=== PATIENT | male | born 1945 | race Caucasian/White ===

== ENCOUNTER → 2017-12-24 07:17 | Outpatient (BNVA) | payer MEDICARE, OTHER, SELFPAY | PROVIDERS: PCP Family Medicine; Visit Provider Surgery | DX: Z12.11 Encounter for screening for malignant neoplasm of colon (principal); Z86.010 Personal history of colon polyps; I10 Essential (primary) hypertension ==

== ENCOUNTER 2018-01-10 06:53 | Day surgery (SDC) | payer MEDICARE, SELFPAY ==
--- NOTE | 2018-01-10 06:53 | W.COLOREPORT ---
Date of service: 01/10/18 Time of Service: 08:30 Colonoscopy Report Date of procedure: 01/10/18 Pre-op diagnosis general: Hx of polyps Post-op diagnosis procedure note: other (mild diverticulosis) Procedure: Colonoscopy Surgeon: Alma Carney Anesthesia proc note operative: MAC (Tay Jewell CRNA/ ASA 2) Estimated blood loss (mL): 0 Pathology: none sent Complications: None Disposition: same day Indications: Mr. Brown is a pleasant 72-year-old gentleman seen in the office for a colonoscopy. He was noted to have polyps at his last colonoscopy. Risks, benefits, complications were reviewed with him and he wished to proceed. No guarantees were given or implied. Prep: Miralax/Dulcolax Procedure Start Time: 08:19 Procedure End Time: 08:43 Retraction Time: 18 Findings: Mild diverticulosis. No polyps noted. Tattoo area noted, no regrowth Procedure Description: After informed consent was obtained the patient was taken to the procedure room and placed in a left decubitous position. Monitors were applied and a time out was done. The patients name, date of , procedure, allergies to medications and metal in their body was reviewed. The patient was then sedated. Once sedated and comfortable a rectal exam was done. External exam was normal. Internal exam revealed a normal sphincter tone and no palpable masses. The prostate was smooth. The scope was then introduced and retroflexed. No internal hemorrhoids were identified. The scope was then advanced to the cecum without difficulty. The TI and appendiceal orifice were identified. The prep was adequate. The scope was then slowly retracted over 18 minutes back into the rectum. There was mild diverticulosis of the sigmoid colon. The tattooed area in the ascending colon was noted. No re-growth of polyp was identified. The scope was removed and the patient was woken up and taken back to Same day surgery in stable condition. The patient tolerated the procedure well and there were no immediate complications. Follow up: The patient should follow up as needed unless they develop changes in bowel habits or other new gastrointestinal complaints.
--- NOTE | 2018-01-10 06:55 | W.PM.DSUDISC ---
Discharge Plan Disposition Patient Disposition: HOME Condition: Good Discharge Details Reason For Visit: HX OF POLYPS Attending Provider: Alma Carney Primary Care Provider: Gaston Jimenez Home Meds and New Rx's Prescriptions: Continue varicella-zoster [id number] (PF) [Shingrix (PF)] 50 mcg/0.5 mL suspension for reconstitution 0.5 ml IM ONCE Qty: 1 RF: 0 garlic 1 EACH capsule 1 ea PO HS RF: 0 omega-3 fatty acids-fish oil 1 EACH capsule 1 ea PO DAILY RF: 0 triamcinolone acetonide 15 GM cream Topical DAILY PRNQty: 15 RF: 2 losartan 25 MG tablet 25 mg PO DAILY Qty: 90 RF: 4 fluorouracil [Efudex] 40 GM cream Topical DAILY Qty: 40 RF: 0 simvastatin [Zocor] 20 MG tablet 20 mg PO HS Qty: 90 RF: 4 hydrochlorothiazide 25 MG tablet 25 mg PO DAILY Qty: 90 RF: 4 aspirin [Aspirin Low-Strength] 81 MG tablet,chewable 81 mg PO HS RF: 0 vitamin B complex 1 EACH capsule 1 ea PO DAILY RF: 0 [id number]-vnaa-gqp0-C-leandro-bosw [Osteo Bi-Flex Triple Strength] 1 EACH tablet 1 ea PO DAILY RF: 0 mometasone [Nasonex] 50 mcg/actuation [place],Non-Aerosol 2 spray INTRANASAL DAILY PRNRF: 0 guaifenesin [Mucinex] 600 mg Tablet Extended Release 12hr 600 mg PO Q12H PRNRF: 0 Discontinued polyethylene glycol 3350 17 gram powder in packet 255 g PO DAILY Qty: 15 RF: 0 bisacodyl [Dulcolax (bisacodyl)] 5 mg tablet,delayed release (DR/EC) 5 mg PO ONCE Qty: 4 RF: 0 Discharge Instructions Instructions: Colonoscopy (DC), Diverticulosis (DC) Additional Instructions: Findings: mild diverticulosis Follow up: as needed New Medications: none Please call if you develop: fevers >101.5 Nausea or Vomiting Abdominal pain that is not transient 1. Because there will be medication in your system for the next 24 hours, you may feel a little sleepy. Your coordination will be affected. Therefore: a. Do not drive or operate dangerous equipment for 24 hours. b. Do not drink alcohol beverages for 24 hours (not even beer). c. Plan to go home and rest for the day. 2. Generally there are no restrictions on your activity after a day or so has gone by, but you may feel a bit fatigued for a few days. 3 After you arrive home you may have a light meal and return to a normal diet as you can tolerate it without feeling sick to your stomach. 4. After surgery, you may feel pain or discomfort. This should be only transient, but if it persists please contact your doctor. 5. If there are any questions regarding the findings of your procedure, please feel free to contact your doctor. 6. If you are unable to contact your doctor with a problem, contact the hospital at [phone]. 7. Continue all your regular medications unless directed otherwise. I understand the above instructions and have no questions. Signature of Patient or Responsible Adult Escort Date/Time Name of Responsible Adult Escort Signature of Nurse Date/Time Activity:: Activity as Tolerated Diet:: As Tolerated Discharge Orders Discharge Orders: Discharge Order (Routine); Ordered 01/10/18 Ordered By: Alma Carney DS: Diagnosis Discharge Diagnosis (1) History of adenomatous polyp of colon: Status: Acute (2) S/P colonoscopy: Status: Acute (3) Diverticulosis: Status: Acute
[2018-01-10 07:17] VITALS: BP 123/76; PULSE 75; RESP 16; TEMP 36.4; O2SAT 99
[2018-01-10] MEDS: Lactated Ringers 1,000 ML 80 ML IV (07:30)
[2018-01-10 09:10] VITALS: BP 119/77; PULSE 66; RESP 16; TEMP 36.3; O2SAT 98
== END 2018-01-10 09:45 | disposition home or self-care (01) ==
PROVIDERS: PCP Family Medicine; Visit Provider Surgery
PROC: 0DJD8ZZ Inspection of Lower Intestinal Tract, Via Natural or Artificial Opening Endoscopic (ICD-10-PCS; CPT 45378; principal; 2018-01-10 08:15)
DX: Z12.11 Encounter for screening for malignant neoplasm of colon (principal); Z86.010 Personal history of colon polyps; K57.30 Diverticulosis of large intestine without perforation or abscess without bleeding; I10 Essential (primary) hypertension; K21.9 Gastro-esophageal reflux disease without esophagitis
CPT/HCPCS: G0105

== ENCOUNTER 2018-10-01 09:02 | Outpatient (CLI) | payer MEDICARE, SELFPAY ==
[2018-10-01 10:28] LABS: Anion Gap 4.4 mmol/L (3-11); BUN 23 mg/dL (7-18); CO2 30.6 mmol/L (21.0-32.0); CREATININE 0.96 mg/dL (0.70-1.30); Calcium 8.5 mg/dL (8.5-10.1); Chloride 105 mmol/L (98-107); Glucose 95 mg/dL (70-100); Potassium 4.4 mmol/L (3.5-5.1); Sodium 140 mmol/L (136-145)
== END 2018-10-01 09:22 ==
PROVIDERS: PCP Family Medicine; Visit Provider Family Medicine
DX: I10 Essential (primary) hypertension (principal)
CPT/HCPCS: 36415; 80048

== ENCOUNTER 2019-02-15 07:38 | Outpatient (CLI) | payer MEDICARE, SELFPAY ==
--- NOTE | 2019-02-15 10:00 | DI.RAD_ITS ---
EXAM: XR CERVICAL SPINE COMP 4-5V INDICATION: neck swelling and pain, neck pain rt side, cervicalgia, M54.2. COMPARISON: LUMBAR SPINE COMPLETE from 04/12/2011 TECHNIQUE: 2D digital imaging was performed. FINDINGS: There is straightening of the normal cervical lordosis. There is narrowing of the C3-4 through C6-7 discs. There appears to be partial fusion between the disc between C 4-5 and C5-6. Facet degenerat crys changes are seen throughout. There is neural foraminal narrowing on the left at C2-3 and C3-4 ma inly secondary to facet encroachment. There is no significant right neural foraminal narrowing. IMPRESSION: Advanced degenerative disc changes and facet degenerative changes cause left neural foraminal narrowi ng in the upper cervical region.
[2019-02-15 10:38] LABS: Abs Immature Grans 0.02 k/cumm (0.0-0.09); Absolute Basophil Count 0.01 k/cumm (0.0-0.2); Absolute Eosinophil Count 0.02 k/cumm (0.0-0.7); Absolute Lymphocyte Count 2.11 k/cumm (1.2-3.4); Absolute Monocyte Count 1.37 k/cumm (0.11-0.7); Absolute Neutrophil Count 7.27 k/cumm (1.2-6.7); Basophils % 0.1; Eosinophils % 0.2; HCT 42.4 % (40.0-50.0); HGB 14.3 g/dL (13.5-17.5); Immature Grans % 0.2; Lymphocytes % 19.5; Mean Corp. HGB Concentration 33.7 g/dL (32.0-36.0); Mean Corpuscular Hemoglobin 31.2 pg (27.0-33.0); Mean Corpuscular Volume 92.6 fL (80-95); Mean Platelet Volume 9.6 fL (8.0-11.0); Monocytes % 12.7; Neutrophils % 67.3; Platelet Count 345 x1000/uL (130-400); RBC 4.58 m/cumm (4.50-6.00); RBC Distribution Width 12.8 % (11.8-14.1)
[2019-02-15 11:22] LABS: ESR 8 mm/hr (1-20)
[2019-02-15 11:35] LABS: C-Reactive Protein < 0.05 mg/dL (0.0-0.3)
== END 2019-02-15 07:58 ==
PROVIDERS: PCP Family Medicine; Visit Provider Family Medicine
DX: M54.2 Cervicalgia (principal); M50.31 Other cervical disc degeneration, high cervical region; M50.322 Other cervical disc degeneration at C5-C6 level; M50.323 Other cervical disc degeneration at C6-C7 level; M47.812 Spondylosis without myelopathy or radiculopathy, cervical region
CPT/HCPCS: 85652; 72050; 85025; 86140

== ENCOUNTER 2019-09-29 10:06 | Outpatient (CLI) | payer MEDICARE, SELFPAY ==
[2019-09-29 13:09] LABS: Anion Gap 9.4 mmol/L (3-11); BUN 21 mg/dL (7-18); CO2 27.6 mmol/L (21.0-32.0); CREATININE 1.01 mg/dL (0.70-1.30); Calcium 8.5 mg/dL (8.5-10.1); Chloride 104 mmol/L (98-107); Glucose 136 mg/dL (74-106); Potassium 3.6 mmol/L (3.5-5.1); Sodium 141 mmol/L (136-145)
== END 2019-09-29 10:26 ==
PROVIDERS: PCP Nurse Practitioner Family; Visit Provider Family Medicine
DX: I10 Essential (primary) hypertension (principal)
CPT/HCPCS: 36415; 80048

== ENCOUNTER 2020-10-03 21:20 | Outpatient (REF) | payer MEDICARE, SELFPAY ==
[2020-10-03 21:45] LABS: Anion Gap 9.2 mmol/L (3-11); BUN 21 mg/dL (7-18); CO2 27.8 mmol/L (21.0-32.0); Calcium 8.8 mg/dL (8.5-10.1); Calculated LDL 99 mg/dL (<100); Chloride 103 mmol/L (98-107); Cholesterol 185 mg/dL (<200); Glucose 106 mg/dL (74-106); HDL Cholesterol 59 mg/dL (40-60); Potassium 3.9 mmol/L (3.5-5.1); Sodium 140 mmol/L (136-145); Triglyceride 135 mg/dL (<150)
== END 2020-10-03 21:21 | disposition home or self-care (01) ==
LOC: LBN 21:20
PROVIDERS: PCP Nurse Practitioner Family; Visit Provider Nurse Practitioner Family
DX: I10 Essential (primary) hypertension (principal); E78.5 Hyperlipidemia, unspecified
CPT/HCPCS: 80048; 80061

== ENCOUNTER 2021-05-27 02:58 | Outpatient (CLI) | payer MEDICARE, SELFPAY ==
[2021-05-27 10:10] LABS: Hemoglobin A1C 6.1 % (<5.7)
== END 2021-05-27 02:59 | disposition home or self-care (01) ==
LOC: LBO 02:58
PROVIDERS: PCP Nurse Practitioner Family; Visit Provider Nurse Practitioner Family
DX: R73.01 Impaired fasting glucose (principal)
CPT/HCPCS: 36415; 83036

== ENCOUNTER 2021-07-14 18:22 | Outpatient (REF) | payer MEDICARE, SELFPAY ==
[2021-07-15 16:06] LABS: COVID-19 RT-PCR UVMMC Result Positive (Negative)
== END 2021-07-14 18:23 | disposition home or self-care (01) ==
LOC: LBN 18:22
PROVIDERS: PCP Nurse Practitioner Family; Visit Provider Nurse Practitioner Family
DX: Z20.822 Contact with and (suspected) exposure to COVID-19 (principal); Z01.818 Encounter for other preprocedural examination
CPT/HCPCS: U0003; U0005

== ENCOUNTER → 2021-10-03 09:08 | Outpatient (BNVA) | payer MEDICARE, SELFPAY | PROVIDERS: PCP Nurse Practitioner Family; Referring Provider Nurse Practitioner Family; Visit Provider Student in an Organized Health Care Education/Training Program | DX: G56.01 Carpal tunnel syndrome, right upper limb (principal) | CPT/HCPCS: 99203 ==

== ENCOUNTER 2021-10-28 10:16 | Day surgery (SDC) | payer MEDICARE, SELFPAY ==
--- NOTE | 2021-10-28 09:09 | W.PM.DSUDISC ---
Discharge Plan Disposition Patient Disposition: HOME Condition: Good Discharge Details Reason For Visit: Right carpal tunnel syndrome Attending Provider: Franklyn Richardson Primary Care Provider: Mayi Gonzalez Home Meds and New Rx's Prescriptions: Continued losartan 25 mg tablet 25 mg PO DAILY Qty: 90 4RF hydrochlorothiazide 25 mg tablet 25 mg PO DAILY Qty: 90 4RF simvastatin [Zocor] 20 mg tablet 20 mg PO HS Qty: 90 4RF fluticasone propionate [Flonase Allergy Relief] 50 mcg/actuation spray,suspension 2 spray intranasal DAILY PRN Rx Instructions: administer into each nostril garlic 1 EACH capsule 1 ea PO HS omega-3 fatty acids-fish oil 1 EACH capsule 1 ea PO DAILY aspirin [Aspirin Low-Strength] 81 MG tablet,chewable 81 mg PO HS vitamin B complex 1 EACH capsule 1 ea PO DAILY Osteo Bi-Flex Triple Strength 1 EACH tablet 1 ea PO DAILY Discharge Instructions Stand Alone Forms: Dylan Vale Tunnel Release Referrals: Franklyn Richardson MD [ [facility]FF [facility]YSICIAN] - Activity:: Elevate Remove Dressings/Wound Care:: 72 hours Shower/Bathe:: 72 hours Diet:: As Tolerated Discharge Orders Discharge Orders: Discharge Order (Routine); Ordered 10/28/21 Ordered By: Kathy Richard
[2021-10-28 10:43] VITALS: BP 113/69; PULSE 77; RESP 16; TEMP 36.6; O2SAT 97
[2021-10-28] MEDS: Lactated Ringers 1,000 ML 80 ML IV (11:25)
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
[2021-10-28 11:46] VITALS: BMI 31.0
[2021-10-28] MEDS: ceFAZolin 2 GM/50 ML BAG IVPB (12:20)
[2021-10-28] MEDS: Lidocaine 1.5 % Pres-Free W/EPI 1/200,000 30 ML VIAL (12:33)
[2021-10-28 12:48] VITALS: BP 111/63; PULSE 76; RESP 14; TEMP 36.3; O2SAT 95
--- NOTE | 2021-10-28 12:51 | W.ANESPOSTOP ---
Postoperative Evaluation Date, Time and Location Date Performed: 10/28/21 Time Performed: 12:52 Patient Location: Day Surgery Unit Vital Signs Most Recent Imported Vital Signs: Most Recent Vital Signs Temp Pulse Resp BP Pulse Ox 36.6 C 77 16 113/69 97 10/28/21 10:43 10/28/21 10:43 10/28/21 10:43 10/28/21 10:43 10/28/21 10:43 Most Recent Manually Entered Vital Signs: Adult Blood Pressure: 111/63 Heart Rate: 74 Respirations: 12 Oxygen Saturation (%): 95 Temperature (C): 36.3 C Pain Score (0-10 Scale): 0 Pain Score Most Recent Pain Score: Most Recent Pain Score Pain Level 0 10/28/21 10:43 Assessment Mental Status: Awake (Alert & Oriented to Patient Baseline) Airway and Respiratory Function: Patent airway with normal (patient baseline) respiratory exam Cardiovascular Function: Hemodynamically Stable Hydration Status: Adequately Hydrated Nausea & Vomiting: No Nausea or Vomiting Pain: Pt. Denies Any Pain Peripheral Nerve Block: Patient did not receive a nerve block
[2021-10-28 12:53] VITALS: BP 111/63; PULSE 74; RESP 12; TEMPC 36.3; O2SAT 95
[2021-10-28 13:19] VITALS: BP 121/66; PULSE 69; RESP 16; TEMP 36.4; O2SAT 97
--- NOTE | 2021-10-28 22:08 | W.PM.OP ---
Date of service: 10/28/21 Time of Service: 13:00 Operative Note Operative Note DATE OF PROCEDURE: 10/28/21 PRE-OP DIAGNOSIS: Right Carpal Tunnel Syndrome POST-OP DIAGNOSIS: same PROCEDURE: Right Endoscopic Carpal Tunnel Release SURGEON: Franklyn Richardson ANESTHESIA TYPE: General:No Airway Refer to Anesthesia Record ESTIMATED BLOOD LOSS: 0 PATHOLOGY: none sent TOURNIQUET TIME: 3 COMPLICATIONS: None Patient was transported to: same day Patient's condition: stable Indications: I have seen Chapincito in clinic for symptoms of carpal tunnel syndrome. The numbness, tingling, and pain limited function. Clinical exam findings with nerve conduction tests confirmed the diagnosis of carpal tunnel syndrome. Nonoperative measures such as bracing, time, activity modifications had been tried but disability and pain persisted. I discussed carpal tunnel release with the patient. I reviewed the risks of the procedure to include, but not limited to, bleeding, infection, pain, stiffness, incomplete release, damage to nerves or vessels, persistent numbness, recurrence. Despite these risks, the patient elected to proceed. Findings: There was tightened carpal tunnel. This was dilated and released successfully with the endoscopic with increased space within the tunnel. The antebrachial fascia was released proximally freeing the median nerve at the wrist. Procedure Description: Chapincito was greeted in the preoperative holding area where the correct side was identified and marked. The consent was reviewed with the patient and signed. The history and physical was updated. All questions were answered. He was taken back to the operating room. The patient was placed into the supine position on the operating room table with the right arm on an arm board. A nonsterile tourniquet was placed high onto the arm. All bony prominences were well padded. Prophylactic antibiotics in the form of Cefazolin were administered. The right arm was then prepped with Chloraprep and draped in a standard fashion with stockinette and extremity drape. A timeout to confirm correct identity, side and site, procedure, allergies, anesthesia, and medical concerns was performed. The surgical site was marked in the volar wrist creases in line with the radial border of the fourth ray. This area was anesthetized with approximately 6cc of 1% Lidocaine. The limb was then exsanguinated with an Esmarch. The skin was incised with a 15 blade, approximately 1cm. The skin only was cut and the deeper tissue was dissected bluntly with a tenotomy scissor, avoiding passing nerve and venous structures. The fascia was penetrated and opened bluntly. A two-prong skin hook was placed under this proximal fascial edge. A series of hamate finders were used to identify and dilate the carpal tunnel. Synovial elevator was used to free synovial attachments to the underside of the transverse carpal ligament. My thumb was kept in the palm to lakshmi the distal extent of the carpal tunnel and correctly position the hand. The Microaire endoscope was inserted without difficulty and without resistance. Excellent visualization showed horizontally running fibers of the transverse carpal ligament (TCL). The distal extent of the TCL was visualized and the end of the scope palpated with the thumb. The blade was elevated and withdrawn from distal to proximal. The TCL was split into two flaps. The endoscope was reinserted to confirm complete release and any remnant ligament was incised. The scope was withdrawn and the proximal aspect of the carpal tunnel was grossly inspected and appeared release with the median nerve visible. The antebrachial fascia at the level of the wrist was then freed from the overlying skin and then the underlying median nerve with blunt dissection. This was transected longitudinally for about 3cm proximal to the wrist incision. The wound was then irrigated with easy flow of irrigant distally and proximally. The incision was closed with a single 4-0 Nylon suture. The wound was dressed with Xeroform, Gauze, Kerlix and Jacob. The tourniquet was deflated with the initial dressing and held with some pressure. Blood flow returned easily to all digits with capillary refill less than 2 seconds. The patient tolerated the procedure well and was returned to the Same Day Surgery area in a stable condition suffering no known complication.
== END 2021-10-28 13:48 | disposition home or self-care (01) ==
PROVIDERS: PCP Nurse Practitioner Family; Visit Provider Student in an Organized Health Care Education/Training Program
PROC: 01N54ZZ Release Median Nerve, Percutaneous Endoscopic Approach (ICD-10-PCS; CPT 29848; principal; 2021-10-28 14:45)
DX: G56.01 Carpal tunnel syndrome, right upper limb (principal); I10 Essential (primary) hypertension; E78.5 Hyperlipidemia, unspecified
CPT/HCPCS: 29848; J0690; J2250

== ENCOUNTER → 2021-11-06 11:13 | Outpatient (BNVA) | payer MEDICARE, SELFPAY | PROVIDERS: PCP Nurse Practitioner Family; Referring Provider Nurse Practitioner Family; Visit Provider Physician Assistant | DX: Z47.89 Encounter for other orthopedic aftercare (principal); G56.01 Carpal tunnel syndrome, right upper limb ==

== ENCOUNTER 2021-11-11 03:58 | Outpatient (CLI) | payer MEDICARE, SELFPAY ==
[2021-11-11 12:49] LABS: Anion Gap 7.3 mmol/L (3-11); BUN 16 mg/dL (7-18); CO2 28.7 mmol/L (21.0-32.0); CREATININE 1.1 mg/dL (0.70-1.30); Calcium 8.6 mg/dL (8.5-10.1); Chloride 101 mmol/L (98-107); Estimated GFR 68.71 (mL/min/1.73m2); Glucose 105 mg/dL (74-106); Potassium 3.7 mmol/L (3.5-5.1); Sodium 137 mmol/L (136-145)
[2021-11-12 09:59] LABS: PSA, Screening 0.6 ng/mL (<=6.5)
== END 2021-11-11 03:59 | disposition home or self-care (01) ==
LOC: LBO 03:59
PROVIDERS: PCP Nurse Practitioner Family; Visit Provider Nurse Practitioner Family
DX: I10 Essential (primary) hypertension (principal); Z85.46 Personal history of malignant neoplasm of prostate; Z12.5 Encounter for screening for malignant neoplasm of prostate
CPT/HCPCS: 36415; 80048; 84153

== ENCOUNTER 2022-11-06 02:13 | Outpatient (CLI) | payer MEDICARE, SELFPAY ==
[2022-11-06 15:14] LABS: Hemoglobin A1C 6.1 % (<5.7)
[2022-11-06 16:51] LABS: ALT 26 U/L (16-63); AST 17 U/L (15-37); Albumin 3.5 g/dL (3.4-5.0); Alkaline Phosphatase 75 U/L (46-116); Anion Gap 5.7 mmol/L (3-11); BUN 23 mg/dL (7-18); Bilirubin, Total 0.5 mg/dL (0.2-1.0); CO2 30.3 mmol/L (21.0-32.0); CREATININE 1.1 mg/dL (0.70-1.30); Calcium 8.4 mg/dL (8.5-10.1); Calculated LDL 66 mg/dL (<100); Chloride 101 mmol/L (98-107); Cholesterol 167 mg/dL (<200); Estimated GFR 68.29 (mL/min/1.73m2); Glucose 107 mg/dL (74-106); HDL Cholesterol 68 mg/dL (40-60); Potassium 3.6 mmol/L (3.5-5.1); Sodium 137 mmol/L (136-145); TSH (W/Ref FT4) 2.58 uIU/mL (0.36-3.74); Total Protein 6.9 g/dL (6.4-8.2); Triglyceride 167 mg/dL (<150)
[2022-11-09 10:42] LABS: Hepatitis C Ab w Rflx HCV PCR Negative (Negative)
== END 2022-11-06 02:14 | disposition home or self-care (01) ==
LOC: LBO 02:13
PROVIDERS: PCP Nurse Practitioner Family; Visit Provider Nurse Practitioner Family
DX: I10 Essential (primary) hypertension (principal); Z00.00 Encounter for general adult medical examination without abnormal findings; R73.03 Prediabetes
CPT/HCPCS: 36415; 80053; 80061; 86803; 83036; 84443

== ENCOUNTER → 2023-04-05 12:10 | Outpatient (CLI) | payer MEDICARE, SELFPAY ==
--- NOTE | 2023-04-05 10:45 | DI.RAD_ITS ---
Exam(s) XR FOOT LT COMPLETE XR HEEL LT OS CALCIS EXAM: XR FOOT LT COMPLETE CLINICAL HISTORY: evaluate pathology G89.29 PAIN M79.672 PAIN LT FOOT. TECHNIQUE: 2D digital imaging was performed. Three views. COMPARISON: CR XR HEEL LT OS CALCIS from 04/05/2023 FINDINGS: BONES: No acute fracture is present. Mild deformity of the proximal phalanx of the 5th toe may be re lated to an old fracture. No bony destructive lesion is seen. The bones appear osteopenic. JOINTS: No dislocation present. Are severe degenerative changes at the talonavicular joint with pro minent dorsal spurring. Degenerative changes also noted at tarsal metatarsal joints crit, greater at the 4th and 5th TMT joints. Degenerative changes also noted at the 5th MTP joint. SOFT TISSUE: Normal. IMPRESSION: Degenerative changes, greatest at the talonavicular joint. DATA REPOSITORY: RADIATION DOSE DELIVERED:
== END ==
PROVIDERS: PCP Nurse Practitioner Family; Visit Provider Nurse Practitioner Family
DX: M19.072 Primary osteoarthritis, left ankle and foot (principal)
CPT/HCPCS: 73630; 73650

== ENCOUNTER → 2023-04-26 11:11 | Outpatient (BNVA) | payer MEDICARE, SELFPAY | PROVIDERS: PCP Nurse Practitioner Family; Referring Provider Nurse Practitioner Family; Visit Provider Podiatrist | DX: L84 Corns and callosities; M67.02 Short Achilles tendon (acquired), left ankle; M79.672 Pain in left foot; M85.662 Other cyst of bone, left lower leg | CPT/HCPCS: 99214 ==

== ENCOUNTER → 2023-05-06 02:09 | Outpatient (CLI) | payer MEDICARE, SELFPAY ==
--- NOTE | 2023-05-06 07:30 | DI.MRI_ITS ---
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 Multiplanar multisequence MRI of the knee was performed on 1.5 christopher unit with both pre and post cont rast infused sequences. Contrast injected was 20 mL Dotarem. COMPARISON: CR XR HEEL LT OS CALCIS from 04/05/2023 CR XR FOOT LT COMPLETE from 04/05/2023 FINDINGS: SKIN: Posterior to the calcaneus is subcutaneous low signal which is probably callus. The skin over t his area appears intact and there does not appear to be an obvious skin ulcer and no fluid-filled tra ct. However, in the deep aspect of this subcutaneous region there is a focus of signal dropout measur ing 5 by 4 mm. Possibly representing chronic foreign body. There is no abnormal intraosseous signal n or intraosseous enhancement in the calcaneus to suggest osteomyelitis. BONES/JOINTS: No evidence of fracture nor bone contusion. There are no significant osseous lesions wi thin the calcaneus and other bones of the mid-hindfoot. No prominent joint effusion is present. The t alar dome appears unremarkable. The ankle mortise is maintained. There are advanced osteoarthritic degenerative changes at the talonavicular joint with degenerative subarticular cysts predominantly on the talus side and subarticular edema on both sides the joint and opposing dorsal osteophytes at thi s level. Only mild degenerative changes in the tibiotalar and subtalar joints. Mild degenerative castro ges at the calcaneocuboid articulation noted. Some degenerative change noted at the calcaneocuboid. A lso at the articulation between the navicular and medial cuneiform. There is significant degenerative change at the 4th tarsometatarsal joint with joint space narrowing, degenerative subarticular cysts on both sides of this joint and mild bone edema. A lesser amount of degenerative changes noted at the 5th tarsometatarsal joint. There is no evidence of para-articular ganglion cysts LIGAMENTS: The anterior and posterior tibiofibular and calcaneofibular ligaments are intact. The ante rior and posterior talofibular ligaments are intact. The deltoid ligament is intact. Main Lisfranc ligament appears intact SINUS TARSI: There is no loss of the normal fat signal in this space. Interosseous ligament appears somewhat attenuated but otherwise intact.. There is no evidence of sinus tarsi ganglion cyst. MUSCULOTENDINOUS STRUCTURES: Achilles tendon: Unremarkable. No evidence of tear nor tendinitis/tendinosis. Plantar fascia: Unremarkable. No evidence of tear, abnormal thickening, nor abnormal nodularity. Ther e is no prominent inferior calcaneal spur on the undersurface of the calcaneus. Anterior Extensor tendons: The tibialis anterior appears unremarkable. Extensor tendons are somewhat thin the over the region of the dorsal osteophytes at the talonavicular joint. Medial Tendons: Posterior Tibialis: Unremarkable. No tear or tenosynovitis evident. Flexor Digitorum longus: Unremarkable. No tear or tenosynovitis evident. Flexor Hallicus longus: Unremarkable. No tear or tenosynovitis evident. Lateral Tendons: Peroneus longus: Unremarkable. No tear nor tenosynovitis evident. Peroneus brevis:Unremarkable. No tear nor tenosynovitis evident. OTHER FINDINGS: None. IMPRESSION: 1. 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 Most prominent degenerative findings are at the talonavicular joint where there is signi ficant joint space narrowing. Degenerative subarticular cysts and opposing dorsal osteophytes over wh ich extensor or tendons are splayed. 2. Other significant degenerative changes or at the articulation between the distal cuboid and bases of the 4th and 5th metatarsals, most prominent at the 4th tarsometatarsal joint. There are no obvious degenerative changes at the 1st, 2nd, and 3rd tarsometatarsal joints although there is some degenera tive change at the articulation between the distal navicular and medial cuneiform. 3. On the posterior aspect of the foot there is a skin marker in place. The skin over this area appea rs intact but there is hypointensity on all sequences in the subcutaneous fat between the skin and th e posterior cortex of the calcaneus. This does not have the appearance of an active ulcer but may be tract from remote foreign body. There is no susceptibility artifact at this level. If clinically feli cated CT scan through this region can not determine if there is a very subtle radiopaque density cate esponding to this hypointense signal. Most importantly, there is no evidence to suggest osteomyelitis . The Achilles tendon and plantar fascia appear unremarkable. DATA REPOSITORY:
[2023-05-06 10:22] LABS: Estimated GFR 76.56 (mL/min/1.73m2)
[2023-05-06] MEDS: Gadoterate meglumine 20 ML SYRINGE IVP (10:40)
[2023-05-06] MEDS: Normal Saline Flush 10 ML SYR IVP (10:42)
== END ==
PROVIDERS: PCP Nurse Practitioner Family; Visit Provider Podiatrist
DX: M85.672 Other cyst of bone, left ankle and foot (principal); M79.672 Pain in left foot
CPT/HCPCS: 73723; 82565

== ENCOUNTER → 2023-05-12 08:04 | Outpatient (BNVA) | payer MEDICARE, SELFPAY | PROVIDERS: PCP Nurse Practitioner Family; Referring Provider Nurse Practitioner Family; Visit Provider Podiatrist | DX: L84 Corns and callosities; M67.02 Short Achilles tendon (acquired), left ankle; M79.672 Pain in left foot; M85.672 Other cyst of bone, left ankle and foot | CPT/HCPCS: 99213 ==

== ENCOUNTER → 2023-06-07 11:26 | Outpatient (BNVA) | payer MEDICARE, SELFPAY | PROVIDERS: PCP Nurse Practitioner Family; Referring Provider Nurse Practitioner Family; Visit Provider Podiatrist | DX: M85.672 Other cyst of bone, left ankle and foot; L84 Corns and callosities; M67.02 Short Achilles tendon (acquired), left ankle; M79.672 Pain in left foot | CPT/HCPCS: 99214 ==

== ENCOUNTER → 2023-07-27 13:05 | Outpatient (CLI) | payer MEDICARE, SELFPAY ==
--- NOTE | 2023-07-27 13:41 | DI.RAD_ITS ---
Exam(s) XR SHOULDER RT COMPLETE 2+V EXAM: XR SHOULDER RT COMPLETE 2+V CLINICAL HISTORY: right shoulder pain. TECHNIQUE: 2D digital imaging was performed of the right shoulder. Six images were obtained. AP, G rashey, Y-view and axillary views were obtained. COMPARISON: No exams were available for comparison FINDINGS: BONES: No acute fracture is present. No bony destructive lesion is seen. JOINTS: No dislocation present. There are degenerative changes seen at the glenohumeral joint with remi int space narrowing and osteophytes present. The acromioclavicular joint is well maintained. SOFT TISSUE: There are soft tissue calcifications adjacent to the humeral head which may reflect calc ific tendinitis. IMPRESSION: Mild degenerative changes seen at the glenohumeral joint. DATA REPOSITORY: RADIATION DOSE DELIVERED:
== END ==
PROVIDERS: PCP Nurse Practitioner Family; Visit Provider Physician Assistant
DX: M25.511 Pain in right shoulder (principal)
CPT/HCPCS: 73030

== ENCOUNTER → 2023-08-24 07:56 | Outpatient (BNVA) | payer MEDICARE, SELFPAY | PROVIDERS: PCP Nurse Practitioner Family; Referring Provider Nurse Practitioner Family; Visit Provider Student in an Organized Health Care Education/Training Program | DX: M12.811 Other specific arthropathies, not elsewhere classified, right shoulder (principal) | CPT/HCPCS: 99213 ==

== ENCOUNTER 2023-10-04 08:52 | Outpatient (CLI) | payer MEDICARE, SELFPAY ==
--- NOTE | 2023-10-04 08:30 | DI.RAD_ITS ---
Exam(s) XR KNEE RT 4V AP,LAT,JUANIS,PAT EXAM: XR KNEE RT 4V AP,LAT,JUANIS,PAT CLINICAL HISTORY: RIGHT KNEE PAIN. TECHNIQUE: 2D digital imaging was performed. Three views. COMPARISON: No exams were available for comparison FINDINGS: BONES: No acute fracture is present. No bony destructive lesion is seen. JOINTS: Narrowing of the lateral femoral tibial joint space. Periarticular spurring and sclerosis.. No joint effusion is seen. SOFT TISSUE: Vascular calcifications. 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 DATA REPOSITORY: RADIATION DOSE DELIVERED:
--- NOTE | 2023-10-04 08:45 | DI.RAD_ITS ---
Exam(s) XR HIP RT COMPLETE AP PELVIS EXAM: XR HIP RT COMPLETE AP PELVIS CLINICAL HISTORY: right hip pain. TECHNIQUE: 2D digital imaging was performed. Two views COMPARISON: CR LUMBAR SPINE COMPLETE from 04/12/2011 FINDINGS: BONES: No acute fracture is present. No bony destructive lesion is seen. JOINTS: No dislocation present. Hip joint spaces are maintained. Mild bilateral acetabular spurrin g. SI joints and pubic symphysis show mild degenerative changes. SOFT TISSUE: Normal. IMPRESSION: No acute abnormality. Mild degenerative changes. DATA REPOSITORY: RADIATION DOSE DELIVERED:
== END 2023-10-04 08:53 | disposition home or self-care (01) ==
LOC: DIORS 08:52
PROVIDERS: PCP Nurse Practitioner Family; Referring Provider Nurse Practitioner Family; Visit Provider Physician Assistant
DX: M17.11 Unilateral primary osteoarthritis, right knee; M16.11 Unilateral primary osteoarthritis, right hip
CPT/HCPCS: 20610; J1010; 73502; 73564

== ENCOUNTER → 2023-11-02 07:57 | Outpatient (BNVA) | payer MEDICARE, SELFPAY | PROVIDERS: PCP Nurse Practitioner Family; Referring Provider Nurse Practitioner Family; Visit Provider Student in an Organized Health Care Education/Training Program | DX: M12.811 Other specific arthropathies, not elsewhere classified, right shoulder (principal) | CPT/HCPCS: 99213 ==

== ENCOUNTER 2023-11-08 07:37 | Outpatient (CLI) | payer MEDICARE, SELFPAY ==
[2023-11-08 12:42] LABS: BUN 21 mg/dL (7-18); CREATININE 1.1 mg/dL (0.70-1.30); Calcium 8.8 mg/dL (8.5-10.1); Chloride 104 mmol/L (98-107); Estimated GFR 67.86 (mL/min/1.73m2); Glucose 81 mg/dL (74-106); Potassium 3.7 mmol/L (3.5-5.1); Sodium 140 mmol/L (136-145)
[2023-11-08 12:43] LABS: Hemoglobin A1C 5.8 % (<5.7)
== END 2023-11-08 07:38 | disposition home or self-care (01) ==
PROVIDERS: PCP Nurse Practitioner Family; Referring Provider Nurse Practitioner Family; Visit Provider Nurse Practitioner Family
DX: R73.03 Prediabetes (principal); Z12.5 Encounter for screening for malignant neoplasm of prostate; I10 Essential (primary) hypertension; Z71.89 Other specified counseling
CPT/HCPCS: 36415; 80048; 83036

== ENCOUNTER → 2023-12-03 07:58 | Outpatient (BNVA) | payer MEDICARE, SELFPAY | PROVIDERS: PCP Nurse Practitioner Family; Referring Provider Nurse Practitioner Family; Visit Provider Physician Assistant | DX: M16.11 Unilateral primary osteoarthritis, right hip (principal) | CPT/HCPCS: 20611; J1010 ==

== ENCOUNTER 2024-02-28 14:59 | Outpatient (CLI) | payer MEDICARE, SELFPAY ==
--- NOTE | 2024-02-28 10:19 | DI.RAD_ITS ---
Exam(s) XR ELBOW LT COMPLETE EXAM: XR ELBOW LT COMPLETE CLINICAL HISTORY: injury r/o fracture, S59.120Z. TECHNIQUE: 2D digital imaging was performed. COMPARISON: No exams were available for comparison FINDINGS: 3 views No evidence of obvious fracture nor dislocation but there appears to be a joint effusion with elevati on of the anterior fat pad. Radial head and neck appear unremarkable. Epicondyles unremarkable. No loose intra-articular bodies seen. There is an enthesophyte on the posterior olecranon insertion si te of the triceps. No prominent swelling over this area although there is some subcutaneous edema be hind the distal humerus. IMPRESSION: As above. Suspect possible occult fracture as there is a joint effusion noted and there is an acute trauma history. DATA REPOSITORY: RADIATION DOSE DELIVERED:
--- OUTSIDE RECORDS SUMMARY | 2024-02-28 15:02 | XMS_ITS | Encounter Summary ---
Author Organization [facility] Address [address] [place] [address] Care Team Providers Care Art Gallery Director Name Role Phone Sandor Dixon MD Primary Care Provider Unavail able Encounter Details Date Type Department Care Team (Late st Contact Info) Description 03/16/2012 Results Only [facility] [address] [place], [place] [address] Geraldo Ni MD [address] [place], [place] [id number] Social History Tobacco Use Types Packs/Day Years Used Date Smoking Tobacco: Never Assessed Sex and Gender Information Value Date Recorded Sex Assigned at Not on file Legal Sex Male 18:36 EST Gender Identity Male 09/02/2021 12:06 EDT Sexual Orientation Not on file documented as of this encounter Plan of Treatment Not on file documented as of this encounter Procedures Procedure Name Priority Date/Time Associated Diagnosis Comments SURGICAL PATHOLOGY Routine 03/16/2012 22 :18 EST documented in this encounter Results * SURGICAL PATHOLOGY (03/16/2012 22:18 EST) Pathology Report: SURGICAL PATHOLOGY REPORT Reports generated via electronic interface contain original data; however they are lacking the format of the original report. Caution should be taken when reading/interpreti ng unformatted reports. Name: ? CHAPINCITO RIVERO ? Accession #: ? [id number] ? : ? 1945 (Age: 66) ??M ? Collect Date: ? 03/16/2012 ? Location: ? [facility] ? Receive Date: ? 03/16/2012 ? Provider: GERALDO NI MD Copy to: PETRONA LANE MD ? Final Pathologic Diagnosis: A. ?Colon, cecum, polyp, biopsy: 1. ?Tubular adenomata (4 pieces). ? - No high grade dysplasia. ? B. ??Colon, question of sigmoid polyps, biopsy: ? 1. ?? Tubular adenoma (1 piece). ?- No high grade dysplasia. ?2. ?? Colonic mucosa (1 piece) with no specific histopathologic diagnosis. Document reviewed and electronically signed by: Ken Carias MD Report ??Date: 03/18/2012 14:36 By the signature above, the attending physician certifies that he/she has personally conducted a gross and/or microscopic examination of the described specimens and rendered or confirmed the above diagnosis. Specimen(s) Received: A. ?Cecal polyp B. ? sigmoid polyps x2 Clinical History: ? H/O colon adenoma Gross Description: ? Received in formalin labelled Chapincito Rivero and #1 cecal polyp are two page-pink irregular soft tissue fragments measuring 0.4 x 0.4 x 0.2 cm and 0.5 x 0.2 x 0.2 cm. ??The specimens are entirely submitted as (A1). Received in formalin labelled Chapincito Rivero and #2 ? sigmoid polyps x2 are two page-pink irregular soft tissue fragments measuring 0.3 x 0.2 x 0.1 cm and 0.4 x 0.3 x 0.3 cm. ??The specimens are entirely submitted as (B1). ??(Huey Cuellar)/eduardo End of Report HAYDEE RICHMOND 03/16/2012 22:1 8 EST 03/16/2012 22:18 EST us Geraldo Ni MD PATHOLOGY ORDERABLES Final Resul t Performing Organization Address City/State/[facility] Co de Phone Number [facility] [address] [place] [address] documented in this encounter Visit Diagnoses Not on filedocumented in this encounter Care Teams Art Gallery Director Relationship Specialty Start Date End Date Sandor Dixon MD PCP - General 12/07/08 07/09/21 documented as of this encounter
--- OUTSIDE RECORDS SUMMARY | 2024-02-28 15:02 | XMS_ITS | Encounter Summary ---
Author Organization [facility] Address [address] [place] [address] Care Team Providers Care Take Down Inspector Name Role Phone Mayi Gonzalez NP Primary Care Provider [phone] Reason for Visit * Reason Onset Date Comments COVID-19 07/14/2021 Encounter Details Date Type Department Care Team (Late st Contact Info) Description 07/14/2021 [facility]phone [facility] [address] [place] [address] Bridgett Panchal MD [address] [facility], [facility] [address] [place] [address] COVID-19 Social History Tobacco Use Types Packs/Day Years Used Date Smoking Tobacco: Never Smokeless Tobacco: Never Alcohol Use Standard Drinks/Week Comments Yes 0 (1 standard drink = 0.6 oz pur e alcohol) couple times a week Sex and Gender Information Value Date Recorded Sex Assigned at Not on file Legal Sex Male 18:36 EST Gender Identity Male 09/02/2021 12:06 EDT Sexual Orientation Not on file documented as of this encounter Miscellaneous Notes * Telephone Encounter - Clemencia Cobos - 07/14/2021 0908 EDT Patient's advised that they went to [facility] today; but the testing site is closed. They will go to the Lab at [facility] For covid testing today, 07/14/21 documented in this encounter Plan of Treatment Not on file documented as of this encounter Visit Diagnoses Not on filedocumented in this encounter Care Teams Take Down Inspector Relationship Specialty Start Date End Date Mayi Gonzalez NP [address] [place] [address] [address] [place] [address] PCP - General 07/10/21 documented as of this encounter
--- OUTSIDE RECORDS SUMMARY | 2024-02-28 15:02 | XMS_ITS | Encounter Summary ---
Author Organization [facility] Address [address] [place] [address] Care Team Providers Care Securities Dealer Name Role Phone Unavailable Primary Care Provider Unavailabl e Encounter Details Date Type Department Care Team (Late st Contact Info) Description 12/05/2008 Orders Only [facility] Medicine [address] [address] Geraldo Ni MD [address] [place], [place] [id number] Social History Tobacco Use Types Packs/Day Years [...] Date/Time Associated Diagnosis Comments SURGICAL PATHOLOGY Routine 12/05/2008 0:00 EDT documented in this encounter Results * SURGICAL PATHOLOGY (12/05/2008 0:00 EDT) Pathology Report: SURGICAL PATHOLOGY REPORT ? Reports generated via electronic interface contain original data; ? however they are lacking the format of the original report. ? Caution should be taken when reading/interpreti ng unformatted reports. ? Name: ? JOSEFA, CHAPINCITO ? Accession #: ? [id number] ? : ? 1945 (Age: 63) ??M ? Collect Date: ? 12/05/2008 ? Location: ? [facility] ? Receive Date: ? 12/05/2008 ? Provider: GERALDO NI MD ? Copy to: HARRIS METCALF MD ? Final Pathologic Diagnosis: ? Colon, ascending, polyp, biopsy: ? - Tubular adenoma. ? Document reviewed and electronically signed by: ? Mariah Villa MD ? Report ??Date: 12/07/2008 15:37 ? By the signature above, the attending physician certifies that he/she has ? personally conducted a gross and/or microscopic examination of the described ? specimens and rendered or confirmed the above diagnosis. ? Specimen(s) Received: ? Ascending colon polyp ? Clinical History: ? Flat adenoma?, prior polypectomy & tattoo; hx flat adenoma - tattoo ? Gross Description: ? Received in Hollande's fixative labelled Josefa, Chapincito and ascending ?? colon polyp are six page-pink soft tissues ranging from 0.2 x 0.2 x 0.2 cm to ?? 0.4 x 0.3 x 0.2 cm. ??The specimen is entirely submitted as (A1) and (A2). ??(M. ?? Rose)/mms ? End of Report ? HAYDEE RICHMOND 12/05/2008 12/05/2008 16: 22 EDT us Geraldo Ni MD PATHOLOGY ORDERABLES Final Resul t [facility] [address] [place] [address] documented in this encounter Visit Diagnoses Not on filedocumented in this encounter
--- OUTSIDE RECORDS SUMMARY | 2024-02-28 15:02 | XMS_ITS | Encounter Summary ---
Author Organization [facility] Address [address] [place] [address] Care Team Providers Care Decorating Supervisor Name Role Phone Sandor Dixon MD Primary Care Provider Unavail able Encounter Details Date Type Department Care Team (Late st Contact Info) Description 06/09/2021 Orders Only [facility] Ophthalmology - [address] [address] Bridgett Panchal MD [address] [place] [address], [address] [place] [phone] Pre-op testing (Primary Dx) Social History Tobacco Use Types Packs/Day Years Used Date Smoking Tobacco: Never Smokeless Tobacco: Never Sex and Gender Information Value Date Recorded Sex Assigned at Not on file Legal Sex Male 18:36 EST Gender Identity Male 09/02/2021 12:06 EDT Sexual Orientation Not on file documented as of this encounter Plan of Treatment Not on file documented as of this encounter Visit Diagnoses Diagnosis Pre-op testing- Primary Preoperative examination, unspecified documented in this encounter Care Teams Decorating Supervisor Relationship Specialty Start Date End Date Sandor Dixon MD PCP - General 12/07/08 07/09/21 documented as of this encounter
--- OUTSIDE RECORDS SUMMARY | 2024-02-28 15:02 | XMS_ITS | Encounter Summary ---
Author Organization [facility] Address [address] [place] [address] Care Team Providers Care Arranger Assembler Name Role Phone Mayi Gonzalez NP Primary Care Provider [phone] Reason for Visit * Auth/Cert Specialty Diagnoses / Procedures Referred By Oliver martinez Referred To Contact Diagnoses Dermatochalasis of both upper eyelids Brow ptosis, bilateral Dermatochalasis of both upper eyelids [H02.831, H02.834] Brow ptosis, bilateral [H57.813] Procedures SD REPAIR BROW PTOSIS SD REVISION OF UPPER EYELID Bliateral Brow Ptosis and Upper Eyelid Repair BLEPHAROPLASTY, UPPER EYELID, BILATERAL Referral ID Status Reason Start Date Expiration Date Visits Re quested Visits Authorized [id number] 07/08/2021 11/07/2021 1 1 Encounter Details Date Type Department Care Team (Late st Contact Info) Description 09/04/2021 9:47 EDT - 09/04/2021 15:50 EDT Hospital Encounter [facility] Operating Room [address] [place] [address] Bridgett Panchal MD [address] [facility], [address] [place] [address] Discharge Disposition: Home or Self Care Social History Tobacco Use Types Packs/Day Years [...] on file documented as of this encounter Last Filed Vital Signs Vital Sign Reading Time Taken Comments Blood Pressure 165/92 09/04/2021 1530 EDT Pulse - - Temperature 36.8 ??C (98.2 ??F) 09/04/2021 1530 EDT Respiratory Rate 15 09/04/2021 1530 EDT Oxygen Saturation 97% 09/04/2021 1530 EDT Inhaled Oxygen Concentration - - Weight 102.3 kg (225 lb 8.5 oz) 09/04/2021 1047 EDT Height 182.9 cm (6') 09/04/2021 1047 EDT Body Mass Index 30.59 09/04/2021 1047 EDT documented in this encounter Discharge Instructions * Discharge Instructions* Bridgett Panchal MD - 09/04/2021 14:29 EDT - You may shower after 24 hours and get incisions wet (wash face like usual) - For 3 days, no heavy lifting or heavy activity including running; no bending below the waist. - No eye rubbing - Use prescribed ointment on wounds over both upper eyelids and both brows 2-3 times a day - Use ice over the wounds for 15 minutes of every 1-2 hours you are awake for the first 48 hours. - Take Tylenol 650mg by mouth every 4-6 hours as needed for pain control (not to exceed a total of 4000mg in 24 hours) - Follow up in 7-[address] Panchal (if unsure of appointment time, call [phone]) - If you have decreasing vision, uncontrollable pain, or significant bleeding call [phone] [address]Dr. Panchal documented in this encounter Medications at Time of Discharge aspirin chewable 81 mg tablet Take 81 mg by mouth daily. cyanocobalamin (VITAMIN B-12) 500 mcg tablet Take 500 mcg by mouth daily. fluticasone propionate (FLONASE) 50 mcg/actuation nasal spray Instill 100 mcg into both nostrils daily. Glucosamine-Chond roitin (OSTEO BI-FLEX) 250-200 mg tablet Take by mouth. hydroCHLOROthiazi de (HYDRODIURIL) 25 mg tablet Take 12.5 mg by mouth daily. losartan (COZAAR) 25 mg tablet Take 25 mg by mouth daily. neomycin-polymyxi n-dexamethasone (MAXITROL) ophthalmic ointment Apply small amount to both upper eyelids and both eyebrows 2-3 times daily for 10 days 3.5 g 1 09/04/2021 [id number]-F srinath Oil 1,000 mg (120 mg-180 mg) capsule Take by mouth. simvastatin (ZOCOR) 10 mg tablet Take 10 mg by mouth every evening. documented as of this encounter Ordered Prescriptions Prescription Sig Dispense Quantity Refills Last Filled Start Date End Date neomycin-polymyxin -dexamethasone (MAXITROL) ophthalmic ointment Apply small amount to both upper eyelids and both eyebrows 2-3 times daily for 10 days 3.5 g 1 09/04/2021 documented in this encounter Discharge Disposition Disposition Code Departure Means Destination Home or Self Snf documented in this encounter Progress Notes * Kalina Barney RN - 09/04/2021 1050 EDT Preop Covid DOS screening questionnaire Please document by exception (only check those that apply). Have you had any of the following symptoms recently? no Yes Chronic ? Cough Shortness of breath or difficulty breathing Fever Chills Fatigue Muscle or body aches Severe Headache New loss of taste or smell Sore throat Congestion or runny nose Rash Nausea, vomiting, or diarrhea (rare in adults. More common in children) Have you had any exposure to a COVID + person since your covid test (in the last 5 days)? no Have you tested positive in the last 90 days for COVID by PCR and or home test? Yes 07/12 Were you covid tested? no When: Results: Vaccinated: YES / See admission vital signs documentation for admission temperature. documented in this encounter H&P Notes * Bridgett Panchal MD - 09/04/2021 1205 EDT The preoperative history and physical which was performed within 30 days of this procedure has been reviewed and the clinically appropriate elements of the physical examination have been repeated. There are no changes to the documented history and physical or if so such changes are documented below Bridgett Panchal MD 09/04/2021 12:15 Source Note - Him, Scan Admin Background - 08/20/2021 0:00 EDT documented in this encounter OR Notes * OR Surgeon - Bridgett Panchal MD - 09/04/2021 1440 EDT Title of surgery: 1. Bilateral direct brow ptosis repair 2. bilateral blepharoplasty Pre-operative diagnosis: bilateral visually significant brow ptosis and dermatochalasis Post-operative diagnosis: bilateral visually significant brow ptosis and dermatochalasis Surgeon: Bridgett Panchal MD Combination Worker: Latasha Reno Anesthesia: MAC and local 2% lidocaine with 1:100,000 epinephrine and 0.25% marcaine with 1:200,000epinephrine Surgeon's narrative: Informed consent was obtained prior to surgery. The patient was greeted in thepre-operative waiting area where the operative site was identified. The patient was escorted to theoperating room and positioned on the operating table. Proparacaine was instilled in the eyes. The patient was prepped and draped in the usual fashion for oculoplastic surgery. A time out was held. The incision for the direct brow lift was marked just inferior to the highest row of cilia in the both brows, and the areas anesthetised with local. A # 15 scalpel blade was used to cut through the skin following this line, beveled to preserve the follicles, down to subcutaneous fat, and an approximately 1 cm tall ellipse was created superior to this, tapering toward the tail of the brow. The skin flap was cut free, taking care to avoid the supraorbital neurovascular bundle. Hemostasis was maintained with bipolar cautery. The ellipse was closed meticulously with inverted dermal 5.0 vicryl sutures, and a running subcuticular 6.0 prolene to the skin. Attention was then turned to the upper eyelids. Calipers and smooth forceps were used to determine the area of skin to be resected - following the eyelid crease and extending superiorly to the extentthat would not cause exposure of the cornea when the patient closes his eyes. The upper eyelids were marked with a marking pen to outline the area of skin to be resected. Local was injected subcutaneously in both upper eyelids. A #15 blade was used to incise the skin along the line previously marked. Iris scissors were used to excise this area of skin on each upper eyelid. Bipolar cautery was used to obtain hemostasis. The skin was closed using 8-0 Nylon suture. Maxitrol ointment and xeroform gauze were applied to the incisions OU. Two clean, dry 4x4's were placed over the incisions followed by an ice pack. The patient was escorted to recovery in stable condition. An identical procedure was performed on both brows and both upper eyelids. documented in this encounter Miscellaneous Notes * Brief Op Note - Bridgett Panchal MD - 09/04/2021 1437 EDT Ophthalmology BRIEF OPERATIVE NOTE Surgeon: Bridgett Panchal MD Combination Worker: Latasha Reno Pre-Op Diagnosis: bilateral brow ptosis, bilateral dermatochalasis Post-Op Diagnosis: same Procedure: bilateral direct brow repair, bilateral upper eyelid blepharoplasty Anesth: MAC with local 50:50 mixture of 2% lidocaine with 1:100,000 epinephrine and 0.s5% marcaine with 1:200,000 epinephrine EBL: <10cc Findings: bilateral brow ptosis bilateral dermatochalasis Specimen: none Foreign Material Retained: none Complications: none Dispo: To PACU in stable condition Bridgett Panchal MD 09/04/2021, 14:39 documented in this encounter Plan of Treatment Not on file documented as of this encounter Procedures Procedure Name Priority Date/Time Associated Diagnosis Comments BLEPHAROPLASTY, UPPER EYELID, BILATERAL 09/04/2021 12:16 EDT Dermatochalasis of both upper eyelids Brow ptosis, bilateral REPAIR, BROW PTOSIS, SUPRACILIARY, MIDFOREHEAD, CORONAL APPROACH, BILATERAL 09/04/2021 12:16 EDT Dermatochalasis of both upper eyelids Brow ptosis, bilateral documented in this encounter Visit Diagnoses Diagnosis Brow ptosis, bilateral- Primary Dermatochalasis of both upper eyelids documented in this encounter Admitting Diagnoses Diagnosis Dermatochalasis of both upper eyelids Brow ptosis, bilateral documented in this encounter Administered Medications Inactive Administered Medications - up to 3 most recent administrations Medication Order MAR Action Action Date Dose Rate Site lactated ringers (LR) infusion at 25 mL/hr, intravenous, CONTINUOUS, Starting on Pallavi 09/04/21 at 1145, Until Pallavi 09/04/21 at 1752, Routine, Preprocedure Continued by Anesthesia 09/04/2021 12:25 EDT 25 mL/hr New Bag 09/04/2021 11:15 EDT 25 mL/hr lactated ringers (LR) infusion at 75 mL/hr, intravenous, CONTINUOUS, Starting on Pallavi 09/04/21 at 1430, Until Pallavi 09/04/21 at 1752, Routine, Recovery (only) documented in this encounter Active and Recently Administered Medications Times are shown in EDT. Continuous Medication Order 09/02/2021 09/03/2021 09/04/2021 lactated ringers (LR) infusion at 25 mL/hr, intravenous, CONTINUOUS, Starting on Pallavi 09/04/21 at 1145, Until Pallavi 09/04/21 at 1752, Routine, Preprocedure 1115 (New Bag - Prov ider: Kalina Barney RN)1225 (Continued by Anesthesia - Provider: LUIS ENRIQUE No)1430 (Anesthesia Volume Adjustment - Provider: LUIS ENRIQUE No) lactated ringers (LR) infusion at 75 mL/hr, intravenous, CONTINUOUS, Starting on Pallavi 09/04/21 at 1430, Until Pallavi 09/04/21 at 1752, Routine, Recovery (only) 1430 (Canceled Entry - Provider: Batch Job User Admin - Comment: Automatically canceled at discontinue of medication order) PRN Medication Order 09/02/2021 09/03/2021 09/04/2021 bupivacaine-EPINEPHrine (PF) 0.25 %-1:200,000 injection (CANCELED) PRN, Starting on Pallavi 09/04/21 at 1253, Until Pallavi 09/04/21 at 1426, Routine, Intraprocedure 1253 (Given - Provid er: Bridgett Panchal MD - Comment: mixed 50/50 with lidocaine 2% with epi, total of 12ml given) lidocaine-EPINEPHrine 2 %-1:100,000 injection (CANCELED) PRN, Starting on Pallavi 09/04/21 at 1255, Until Pallavi 09/04/21 at 1426, Routine, Intraprocedure 1255 (Given - Provid er: Bridgett Panchal MD - Comment: mixed 50/50 with bupivacaine 0.25% with epi, total of 12ml given) tetracaine HCl (PF) (PONTOCAINE) 0.5 % ophthalmic solution (CANCELED) PRN, Starting on Pallavi 09/04/21 at 1253, Until Pallavi 09/04/21 at 1426, Routine, Intraprocedure 1253 (Given - Provid er: Bridgett Panchal MD) documented in this encounter Orders Medications Ordered That Vance ht Not Have Been Administered Count Last Ordered Date First Ordered Date acetaminophen (TYLENOL) solu tion unit dose cup 995 mg 1 09/04/2021 acetaminophen (TYLENOL) tablet 1,000 mg 1 0 09/04/2021 atropine 0.1 mg/mL syringe 0.5 mg 1 022 bupivacaine-EPINEPHrine (PF) 0.25 %-1:200,000 injection 1 09/04/2021 lactated ringers (LR) infusion 1 09/04/2021 lidocaine (PF) 10 mg/mL (1 % ) injection 2 mg 1 09/04/2021 lidocaine-EPINEPHrine 2 %-1: 100,000 injection 1 09/04/2021 naloxone (NARCAN) injection 0.2 mg 1 2021 ondansetron (PF) (ZOFRAN) injection 4 mg 1 09/04/2021 tetracaine HCl (PF) (PONTOCA INE) 0.5 % ophthalmic solution 1 09/04/2021 Discharge Count Last Ordered Date First Orde red Date DISCHARGE PATIENT 1 09/04/2021 documented in this encounter Care Teams Arranger Assembler Relationship Specialty Start Date End Date Adjovu, Mayi, NEON SIGN MAKER [address] [place] [phone] PCP - General 07/10/21 documented as of this encounter
--- OUTSIDE RECORDS SUMMARY | 2024-02-28 15:02 | XMS_ITS | Encounter Summary ---
Author Organization [facility] Address [address] [place] [address] Care Team Providers Care Rollout Manager Name Role Phone Sandor Dixon MD Primary Care Provider Unavail able Reason for Visit * Reason Onset Date Comments COVID-19 06/15/2021 scheduling Encounter Details Date Type Department Care Team (Late st Contact Info) Description 06/15/2021 Telephone [facility] - [employer] [address] [place] [address] Bridgett Panchal MD [address] [facility], [facility] [address] [place] [address] COVID-19 (scheduling) Social History Tobacco Use Types Packs/Day Years Used Date Smoking Tobacco: Never Smokeless Tobacco: Never Sex and Gender Information Value Date Recorded Sex Assigned at Not on file Legal Sex Male 18:36 EST Gender Identity Male 09/02/2021 12:06 EDT Sexual Orientation Not on file documented as of this encounter Miscellaneous Notes * Telephone Encounter - Britni Bolton - 06/16/2021 0827 EDT Patient advised they would like covid testing done at [facility]. Service Delivery Director faxed the order to [phone] and asked that they schedule the patient for testing on 07/14. Also made patient aware of testing date. Service Delivery Director will also remove patient from the work queue. * Telephone Encounter - Berta Martinez - 06/15/2021 1131 EDT Called patient to schedule COVID-19 testing. Left message requesting a call back at # [phone].Patient will need to be tested on 07/14, 3 days prior to procedure on 07/17. This is our 1st attempt at contacting the patient. documented in this encounter Plan of Treatment Not on file documented as of this encounter Visit Diagnoses Not on filedocumented in this encounter Care Teams Rollout Manager Relationship Specialty Start Date End Date Sandor Dixon MD PCP - General 12/07/08 07/09/21 documented as of this encounter
--- OUTSIDE RECORDS SUMMARY | 2024-02-28 15:02 | XMS_ITS | Encounter Summary ---
Author Organization [facility] Address [address] [place] [address] Care Team Providers Care Zinc Plate Grainer Name Role Phone Mayi Gonzalez NP Primary Care Provider [phone] Reason for Visit * Reason Comments Post-OP Follow Up Encounter Details Date Type Department Care Team (Late st Contact Info) Description 09/11/2021 12:30 EDT Post-op Visit [facility] Ophthalmology - [address] [id number] Bridgett Panchal MD [address] [facility], [address] [place] [address] Dermatochalasis of both upper eyelids (Primary Dx); Brow ptosis, bilateral Social History Tobacco Use Types Packs/Day Years [...] on file documented as of this encounter Progress Notes * Bridgett Panchal MD - 09/11/2021 1230 EDT Chief Complaint Patient presents with ??? Post-OP Follow Up Comments S/p Brow Ptosis Repair- Bilateral 09/04/21. Maxitrol-BID, No Pain, No Bleeding. HPI The patient is a 76 y.o. male seen today for a 1 week s/p Brow Ptosis Repair- Bilateral 09/04/21. Maxitrol-BID, No Pain, No Bleeding. ROS Constitutional: ENT/Mouth Cardiovascular: High Blood Pressure, High Cholesterol Respiratory: Gastrointestinal: Genitourinary: Musculoskeletal: Integumentary: Neurologic: Psychiatric: Endocrine: NL Hematologic: Immunologic: NL [place]: Exposures: Other: Attestation: Allergies include: Patient has no known allergies. Patient Active Problem List Diagnosis ??? Dermatochalasis of both upper eyelids ??? Brow ptosis, bilateral Outpatient Medications Marked as Taking for the 09/11/21 encounter (Post-op Visit) with Bridgett Panchal MD Medication Sig ??? aspirin chewable 81 mg tablet Take 81 mg by mouth daily. ??? cyanocobalamin (VITAMIN B-12) 500 mcg tablet Take 500 mcg by mouth daily. ??? fluticasone propionate (FLONASE) 50 mcg/actuation nasal spray Instill 100 mcg into both nostrils daily. ??? Glucosamine-Chondroitin (OSTEO BI-FLEX) 250-200 mg tablet Take by mouth. ??? hydroCHLOROthiazide (HYDRODIURIL) 25 mg tablet Take 12.5 mg by mouth daily. ??? losartan (COZAAR) 25 mg tablet Take 25 mg by mouth daily. ??? vgechndn-cxjnyoiif-fajwuysygmmhj (MAXITROL) ophthalmic ointment Apply small amount to both upper eyelids and both eyebrows 2-3 times daily for 10 days ??? Cxgmr-9-TPI-EPA-Fish Oil 1,000 mg (120 mg-180 mg) capsule Take by mouth. ??? simvastatin (ZOCOR) 10 mg tablet Take 10 mg by mouth every evening. Base Eye Exam Visual Acuity (Snellen - Linear) Right Left Dist cc 20/25 -1 20/25 -1 Correction: Glasses Tonometry (Applanation, 12:22) Right Left Pressure 14 15 Pupils Pupils Right PERRL Left PERRL Neuro/Psych Oriented x3: Yes Mood/Affect: Normal DIAGNOSTIC TESTS: IMPRESSION & PLAN: Encounter Diagnoses Name Primary? Dermatochalasis of both upper eyelids Yes ??? Brow ptosis, bilateral 1. Dermatochalasis of both upper eyelids POW#1 s/p bilateral bleph and direct brow. Doing well. Sutures removed today. 2 more days appointment Follow-up in 1 month 2. Brow ptosis, bilateral As above I have reviewed the patient's past medical, family, social and surgical history. I have also reviewed the patient's medications, allergies, and problem list. I performed my own HPI and have reviewed the tech's ROS as well. I personally completed this exam myself. Bridgett Panchal MD The patient was instructed to call our office or go to emergency room if worse vision, worse symptoms, or new/other concerns arise. documented in this encounter Plan of Treatment Not on file documented as of this encounter Visit Diagnoses Diagnosis Dermatochalasis of both upper eyelids- Primary Brow ptosis, bilateral documented in this encounter Eye Exam Visual Acuity (Snellen - Linear) Right eye Left eye Dist cc 20/25 -1 20/25 -1 Correction: Glasses Tonometry (Applanation, 12:22) Right eye Left eye Pressure 14 15 Pupils Pupils Right eye PERRL Left eye PERRL Neuro/Psych Oriented x3: Yes Mood/Affect: Normal Care Teams Zinc Plate Grainer Relationship Specialty Start Date End Date Mayi Gonzalez NP [address] [place], [place] [address]Y [address] [place] [id number] PCP - General 07/10/21 documented as of this encounter
--- OUTSIDE RECORDS SUMMARY | 2024-02-28 15:02 | XMS_ITS | Encounter Summary ---
Author Organization [facility] [place] [address] Care Team Providers Care Bundle Tier And Labeler Name Role Phone Gaston Jimenez MD Primary Care Provider [phone] Reason for Visit * Consultation (Routine) - Closed Specialty Diagnoses / Procedures Referred By Oliver martinez Referred To Contact Vascular Surgery Diagnoses vasc supply to L leg ?able to undergo total knee arthroplasty Levy Schulte MD [address] [place] [address] [facility] [place] Vascular Surg [address] [place] [address] Referral ID Status Reason Start Date Expiration Date V isits Requested Visits Authorized [id number] Closed Consult, Test & Treat Connection [facility] 03/14/2015 03/13/2016 1 1 Encounter Details Date Type Department Care Team (Latest Contact Info) Description 03/28/2015 1:16 PM EST - 03/28/2015 11:59 PM [facility] Hospital [place] [address] Jhonathan Thompson, RVT Hx of osteomyelitis Discharge Disposition: Home Social History Tobacco Use Types Packs/Day Years Used Date Smoking Tobacco: Former Sex and Gender Information Value Date Recorded Sex Assigned at Not on file Gender Identity Not on file Sexual Orientation Not on file documented as of this encounter Medications at Time of Discharge Medication Sig Dispensed Refills Start Date End Date hydrochlorothiazide (HYDRODIURIL) 25 mg Tablet Take 25 mg by mouth daily. fish oil-omega-3 fatty acids with vitamin E 1,000 mg Capsule Take by mouth daily. b complex vitamins Capsule Take 1 capsule by mouth daily. GLUCOSAMINE/D3/BOSWELLIA YARI (OSTEO BI-FLEX, 5-LOXIN, ORAL) Take by mouth 2 times daily. simvastatin (ZOCOR) 20 mg Tablet Take 20 mg by mouth nightly. Garlic 1,000 mg Capsule Take by mouth daily. aspirin 81 mg Tablet, Delayed Release (E.C.) Take 81 mg by mouth daily. documented as of this encounter Plan of Treatment Not on file documented as of this encounter Procedures Procedure Name Priority Date/Time Associated Diagnosis Comments CROW, LEGS, MULTIPLE LEVELS Routine 03/28/2015 2:02 PM EST Hx of osteomyelitis documented in this encounter Results * CROW, legs, multiple levels (03/28/2015 2:02 PM EST) VB Text Report Department: Vascular Surgery Lab Patient: [id number] (CHAPINCITO RIVERO) CPT: 97252 ICD10: Z87.39 Referring Physician: MARCIO ESCAMILLA M.D. ?? Indications: ??pre-op planning for knee surgery, ? healing potential Diabetes mellitus: No ICD10 Diagnosis Code: Z87.39 Definitions: CROW = Ankle / Brachial Systolic Pressure Index, TBI = Toe / Brachial Systolic Pressure Index. All systolic pressures in this study are derived based on Doppler assessment of blood flow. Findings: Right ?Pressure (mm Hg) ?? CROW ??Waveform ?? Brachial Artery ?135 ? Dorsalis Pedis (Ankle) Artery ?168 ? 1.24 ??Triphasic ?? Posterior Tibial (Ankle) Artery ??163 ? 1.21 ??Triphasic ?? Left ? Pressure (mm Hg) ?? CROW ??Waveform ? Brachial Artery ?133 ? Dorsalis Pedis (Ankle) Artery ?129 ? 0.96 ??Bi-Triphasic ?? Posterior Tibial (Ankle) Artery ??140 ? 1.04 ??Triphasic ? Interpretation: RIGHT: No significant lower extremity arterial occlusive disease identified at rest. Normal ankle/brachial pressure ratios and ankle Doppler waveforms. LEFT: No significant lower extremity arterial occlusive disease identified at rest. Normal ankle/brachial pressure ratios and ankle Doppler waveforms. Comparison: ??No previous study in our vascular lab database for comparison. Electronically Signed by: JANELL DELA CRUZ on 2015-03-29 01:37:30 PM [facility] VB Text Report End of Report [facility] 03/28/2015 2:02 PM EST Marcio Escamilla MD VASCULAR ORDERABLES [facility] documented in this encounter Visit Diagnoses Diagnosis Hx of osteomyelitis Personal history of other musculoskeletal disorders documented in this encounter Care Teams Bundle Tier And Labeler Relationship Specialty Start Date End Date Gaston Jimenez MD [address] [place] [address] PCP - General Family Medicine 03/13/15 01/05/21 documented as of this encounter
--- OUTSIDE RECORDS SUMMARY | 2024-02-28 15:02 | XMS_ITS | Encounter Summary ---
Author Organization [facility] Address [address] [place] [address] Care Team Providers Care Mission Commander Name Role Phone Mayi Gonzalez NP Primary Care Provider [phone] Encounter Details Date Type Department Care Team (Late st Contact Info) Description 11/11/2021 Lab Requisition [facility] Pathology & Laboratory Medicine - [facility] [address] [place] [address] Outr Resulting Lab, Provider Social History Tobacco Use Types Packs/Day Years [...] Procedure Name Priority Date/Time Associated Diagnosis Comments PSA TOTAL, DIAGNOSTIC Routine 11/11/2021 12:10 EDT documented in this encounter Results * PSA TOTAL, DIAGNOSTIC (11/11/2021 12:10 EDT) PSA 0.6 <=6.5 ng/mL 11/12/2021 9:54 EDT [facility] Blood VENOUS BLOOD / Unknown 11/11/2021 12:10 EDT 11/11/2021 21:25 EDT Narrative [facility] - 11/12/2021 9:54 EDT NOTE: Serum PSA concentration should not be interpreted as absolute evidence for the presence or absence of malignant disease. Assayed on Siemens ADVIA Twistaur XPT using chemiluminescent technology.??Values obtained by using different assay methods cannot be used interchangeably. us Provider Outr Resulting Lab CHEMISTRY & BLOOD GA S ORDERABLES Final Result [facility] [address] [place] [address] documented in this encounter Visit Diagnoses Not on filedocumented in this encounter Care Teams Mission Commander Relationship Specialty Start Date End Date Mayi Gonzalez NP [address] [place], [place] [address] [address] [place] [address] PCP - General 07/10/21 documented as of this encounter
--- OUTSIDE RECORDS SUMMARY | 2024-02-28 15:02 | XMS_ITS | Encounter Summary ---
Author Organization [facility] Address [address] [place] [address] Care Team Providers Care Dispatch Specialist Name Role Phone Mayi Gonzalez NP Primary Care Provider [phone] Reason for Visit * Reason Comments Post-OP Follow Up Encounter Details Date Type Department Care Team (Late st Contact Info) Description 10/20/2021 12:30 EDT Post-op Visit [facility] Ophthalmology - [address] [id number] Bridgett Panchal MD [address] [facility], [address] [place] [address] Dermatochalasis of both upper eyelids [...] Progress Notes * Bridgett Panchal MD - 10/20/2021 1230 EDT Chief Complaint Patient presents with ??? Post-OP Follow Up Comments s/p bilateral bleph and direct brow. Vision stable, new glasses. No eye pain. No new flashes or floaters. Stingy sometimes in the corner of left eye. Puts a little ointment. HPI The patient is a 76 y.o. male s/p bilateral bleph and direct brow. Vision stable, new glasses. No eye pain. No new flashes or floaters. Stingy sometimes in the corner of left eye. Puts a little ointment. ROS Constitutional: NL ENT/Mouth Cardiovascular: High Blood Pressure, High Cholesterol Respiratory: Gastrointestinal: Genitourinary: Musculoskeletal: Integumentary: Neurologic: NL Psychiatric: Endocrine: NL Hematologic: Immunologic: Home Energy Consultant Supervisor: Exposures: None Other: Attestation: Allergies include: Patient has no known allergies. Patient Active Problem List Diagnosis ??? Dermatochalasis of both upper eyelids ??? Brow ptosis, bilateral Outpatient Medications Marked as Taking for the 10/20/21 encounter (Post-op Visit) with Bridgett Panchal MD [...] Take 25 mg by mouth daily. ??? umnathwl-kltypbkgq-ldmwsnglqmqqy (MAXITROL) ophthalmic ointment Apply small amount to both upper eyelids and both eyebrows 2-3 times daily for 10 days ??? Saubp-0-TGL-EPA-Fish Oil 1,000 mg (120 mg-180 mg) capsule Take by mouth. ??? simvastatin (ZOCOR) 10 mg tablet Take 10 mg by mouth every evening. Base Eye Exam Visual Acuity (Snellen - Linear) Right Left Dist cc 20/25 20/25 Dist ph cc NI NI Correction: Glasses Tonometry (iCare, 12:32) Right Left Pressure 15 14 Neuro/Psych Oriented x3: Yes Mood/Affect: Normal Slit Lamp and Fundus Exam External Exam Right Left External Incision well healed Incision well healed Slit Lamp Exam Right Left Lids/Lashes Incision well healed Incision well healed Conjunctiva/Sclera White and quiet White and quiet Cornea Clear Clear DIAGNOSTIC TESTS: IMPRESSION & PLAN: Encounter Diagnoses Name Primary? Dermatochalasis of both upper eyelids Yes ??? Brow ptosis, bilateral Postoperative week 6 status post bilateral direct brow lift and bilateral upper eyelid blepharoplasty. Doing well. Recommend use of Vaseline to the left lateral canthus twice daily for dermatitis. Follow-up with Dr. Burton for ongoing eye care. Follow-up with me as needed. I have reviewed the patient's past medical, family, social and surgical history. I have also reviewed the patient's medications, allergies, and problem list. I performed my own HPI and have reviewed the tech's ROS as well. I personally completed this exam myself. Bridgett Panchal MD I am scribing for Bridgett Panchal MD while she personally performs the service. Eliana Katz, LEONARDA, 10/20/2021, 13:02 The patient was instructed to call our [...] Right eye Left eye Dist cc 20/25 20/25 Dist ph cc NI NI Correction: Glasses Tonometry (iCare, 12:32) Right eye Left eye Pressure 15 14 Neuro/Psych Oriented x3: Yes Mood/Affect: Normal External Exam Right eye Left eye External Incision well healed Incision we ll healed Slit Lamp Exam Right eye Left eye Lids/Lashes Incision well healed Incision we ll healed Conjunctiva/Sclera White and quiet White and yakov et Cornea Clear Clear Care Teams Dispatch Specialist Relationship Specialty Start Date End Date Mayi Gonzalez NP [address] [place] [address] [address] [place] [address] PCP - General 07/10/21 documented as of this encounter
--- OUTSIDE RECORDS SUMMARY | 2024-02-28 15:02 | XMS_ITS | Encounter Summary ---
Author Organization [facility] Address [address] [place] [address] Care Team Providers Care Communication Manager Name Role Phone Mayi Gonzalez NP Primary Care Provider [phone] Encounter Details Date Type Department Care Team (Late st Contact Info) Description 07/14/2021 Lab Requisition [facility] Pathology & Laboratory Medicine - [facility] [address] [place] [address] Outr Resulting Lab, Provider Social History Tobacco [...] Procedure Name Priority Date/Time Associated Diagnosis Comments ZZCOVID-19 TEST [facility] PCR Today 07/14/2021 10:50 EDT COVID-19 TESTING Routine 07/14/2021 10:5 0 EDT documented in this encounter Results * COVID-19 TEST [facility] PCR (07/14/2021 10:50 EDT) Swab 07/14/2021 10:5 0 EDT 07/14/2021 22:10 EDT us Provider Outr Resulting Lab MICROBIOLOGY - GENER AL ORDERABLES Final Result Performing Organization Address [facility] de Phone Number [facility] [address] [place] [address] * (ABNORMAL) COVID-19 TESTING (07/14/2021 10:50 EDT) COVID-19 rt-PCR Result Positive( AA) Negative 07/15/2021 16:01 EDT [facility] Comment: This test has not been FDA cleared or approved. This test has been authorized by FDA under an EUA for use by authorized laboratories. This test has been authorized only for detection of nucleic acid from 2019-nCoV, not for any other viruses or pathogens. This test is only authorized for the duration of the declaration that circumstances exist justifying the authorization of emergency use of in vitro diagnostic tests for detection and/or diagnosis of 2019-nCoV under section 564(b)(1) of Act, 21 U.S.C ?? 360bbb-3(b) (1), unless the authorization is terminated or revoked sooner. Testing was performed using the wilbert SARS-CoV-2 assay ([employer] on the Wilbert 6800 System Performing Lab Wilbert [address] [facility] Lab 07/15/2021 16:01 EDT [facility] Swab 07/14/2021 10:5 0 EDT 07/14/2021 22:10 EDT us Provider Outr Resulting Lab MICROBIOLOGY - GENER AL ORDERABLES Final Result Performing Organization Address [facility] Co de Phone Number [facility] [address] [place] [address] documented in this encounter Visit Diagnoses Not on filedocumented in this encounter Additional Health Concerns Infection Onset Date Last Indicated Resolved Time COVID-19 07/14/2021 07/14/2021 08/03/2021 22:1 7 EDT documented as of this encounter Care Teams Communication Manager Relationship Specialty Start Date End Date Mayi Gonzalez NP [address] [place] [address] PCP - General 07/10/21 documented as of this encounter
--- OUTSIDE RECORDS SUMMARY | 2024-02-28 15:02 | XMS_ITS | Encounter Summary ---
Author Organization [facility] Address [address] [place] [address] Care Team Providers Care Engine Specialist Name Role Phone Mayi Gonzalez NP Primary Care Provider [phone] Reason for Visit * Reason Onset Date Comments COVID-19 07/14/2021 Encounter Details Date Type Department Care Team (Late st Contact Info) Description 07/14/[address] [facility] [address] [place] [address] Bridgett Panchal MD [address] [facility] [address] [place] [address] COVID-19 Social History Tobacco Use [...] encounter Miscellaneous Notes * Telephone Encounter - Elizabet Ortega - 07/14/2021 1002 EDT Patient advised they would like covid testing done at PCP. Patient is aware of testing date. Writerwill remove patient from the work queue. documented in this encounter Plan of Treatment Not on file documented as of this encounter Visit Diagnoses Not on filedocumented in this encounter Care Teams Engine Specialist Relationship Specialty Start Date End Date Mayi Gonzalez NP [address] [place] [address] [address] [place] [id number] PCP - General 07/10/21 documented as of this encounter
--- OUTSIDE RECORDS SUMMARY | 2024-02-28 15:02 | XMS_ITS | Encounter Summary ---
Author Organization [facility] Address [address] [place] [address] Care Team Providers Care Clinical Dietitian Name Role Phone Mayi Gonzalez NP Primary Care Provider [phone] Reason for Visit * Auth/Cert Specialty Diagnoses / Procedures Referred By Oliver martinez Referred To Contact Diagnoses Dermatochalasis of both upper eyelids Brow ptosis, bilateral Dermatochalasis of both upper eyelids [H02.831, H02.834] Brow ptosis, bilateral [H57.813] Procedures CO REPAIR BROW PTOSIS CO REVISION OF UPPER EYELID Bliateral Brow Ptosis and Upper Eyelid Repair BLEPHAROPLASTY, UPPER EYELID, BILATERAL Referral ID Status Reason Start Date Expiration Date Visits Re quested Visits Authorized [id number] 07/08/2021 11/07/2021 1 1 Encounter Details Date Type Department Care Team (Late st Contact Info) Description 09/04/2021 12:25 EDT Anesthesia Event [facility] Operating Room [address] [place], [place] [id number] Froy Sandoval MD [address] [place] [phone] Shannan Oates MD [address] [place] [phone] Anesthesia Record Procedure Summary Procedure Name Responsible Anesthesiologist Anesthesia Start Time Anesthesia Stop Time Bliateral Brow Ptosis and Upper Eyelid Repair (Bilateral: Eye) Froy Sandoval MD 09/04/21 1225 09/04/21 1430 Events Date Time Event Comment 09/04/2021 1225 An Start The patient was re-evaluated immediately before moderate or deep sedation use, before anesthesia induction, or before the anesthesia procedure. 1225 Anesthesia Ready 1228 An Start Data 1426 an stop data 1430 Handoff to RN I completed my handoff to the receiving nurse during which we: 1. Identified the patient 2. Identified the responsible provider 3. Reviewed the pertinent medical history 4. Discussed the surgical course 5. Reviewed intra-op anesthesia management and issues during anesthesia 6. Set expectations for post-procedure period 7. Allowed opportunity for questions and acknowledgement of understanding. 1430 An Stop Meds Name Total fentanyl citrate (PF) injection 50 mcg midazolam 1 mg/mL 2 mL vial 2 mg propOFol (DIPRIVAN) injection 40 mg propOFol injection 315,084 mcg lactated ringers (LR) infusion 600 mL * Agents Name O2 N2O Air Aux O2 flow * Blood No blood administrations on file. Lines, Drains, and Airways Type Details Placement Removal Wound 09/04/21; Left; Eye; left eye brow and eye lid incisions; N; Full thickness 09/04/21 0000 by Jesica Barron RN Wound 09/04/21; Incision; Right; Eye; right eye lid and eye brow incisions; N; Full thickness 09/04/21 0000 by Jesica Barron RN Peripheral IV 09/04/21; 1114; 20; 1.25; B Girard Introcan; Left, Posterior; Hand; Inserted by RN; 1; 3.15% Chlorhexidine with IPA; 09/04/21; 1539 09/04/21 1114 by Kalina Barney RN 09/04/21 1539 by Andre Santos RN documented in this encounter Social History Tobacco Use Types Packs/Day Years [...] on file documented as of this encounter OR Notes * Anesthesia Postprocedure Evaluation - Bre Taylor AA - 09/04/2021 1430 EDT Patient: Chapincito Brown Vital signs were reviewed with the recovery nurse. Complete vitals history is available in the Epicflowsheets. Vitals Value Taken Time BP 129/69 09/04/21 1428 Temp 36.3 09/04/21 1430 Resp 11 09/04/21 1430 Pulse From Oximetry 60 BPM 09/04/21 1430 SpO2 98 % 09/04/21 1430 Heart Rate 60 BPM 09/04/21 1430 Vitals shown include unvalidated device data. Last Pain Score - Numeric Pain Level (Scale 1-10): 0 Type of Anesthesia - MAC Anesthesia Post Evaluation Level of consciousness: awake Temperature status: normothermia Respiratory status: airway patent and room air Cardiovascular status: acceptable Hydration status: adequate Nausea/Vomiting: none Pain management: adequate Post-Op Assessment: patient tolerated procedure well with no complications Patient participation: able to participate Disposition: outpatient/home Anesthesia Complications: No apparent anesthesia complications * Anesthesia Preprocedure Evaluation - Shannan Oates MD - 09/04/2021 1108 EDT Anesthesia Preprocedure Evaluation Patient Medical History, including Anesthesia History reviewed. Chart and Nursing Notes reviewed, including NPO status and Medication History. Additional ROS/History Findings: No Known Allergies Review of Systems Constitutional: Negative. HENT: Negative. Eyes: C/C Bilateral Ptosis Respiratory: Past Covid infection-No residual Cardiovascular: HTN/HLD-treated Gastrointestinal: Negative. Genitourinary: Negative. Musculoskeletal: Negative. Skin: Negative. Endo/Heme/Allergies: Negative. No recent change in medical condition, Prior Covid infection-no ongoing symptoms. NPO confirmed, Took Flonase and hydrochlorothiazide this AM. No past difficulty with anesthesia. Past Medical History: Diagnosis Date ??? 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 Allergy to pollen ??? Arthritis ??? Cataract ??? History of general anesthesia ??? Hyperlipidemia ??? Hypertension controlled with medication Relevant Problems No relevant active problems Physical Exam Airway Mallampati: I TM distance: >3 FB Neck ROM: full Cardiovascular - normal exam Rhythm: regular Rate: normal Dental - normal exam Pulmonary - normal exam Breath sounds clear to auscultation Abdominal Anesthesia Plan ASA 2 Anesthesia Type - MAC Block for post-op pain? No Anesthesia plan and risks discussed. Informed consent obtained from patient. Code status discussed? No The preoperative history and physical which was performed within 30 days of this procedure, has been reviewed and the clinically appropriate elements of the physical examination have been repeated. There are no changes to the documented history and physical or, if so, such changes are documented inthis note PAT Note Notes from 08/05/21 through 09/04/21 No notes of this type exist for this encounter. documented in this encounter Plan of Treatment Not on file documented as of this encounter Visit Diagnoses Not on filedocumented in this encounter Administered Medications Inactive Administered Medications - up to 3 most recent administrations Medication Order MAR Action Action Date Dose Rate Site fentaNYL citrate (PF) injection intravenous, PRN, Starting on Pallavi 09/04/21 at 1227, Until Pallavi 09/04/21 at 1430, Routine, Anesthesia Intraprocedure Given 09/04/2021 12:27 EDT 50 mcg lactated ringers (LR) infusion at 25 mL/hr, intravenous, CONTINUOUS, Starting on Pallavi 09/04/21 at 1145, Until Pallavi 09/04/21 at 1752, Routine, Preprocedure Continued by Anesthesia 09/04/2021 12:25 EDT 25 mL/hr New Bag 09/04/2021 11:15 EDT 25 mL/hr midazolam (PF) (VERSED) injection intravenous, PRN, Starting on Pallavi 09/04/21 at 1227, Until Pallavi 09/04/21 at 1430, Routine, Anesthesia Intraprocedure Given 09/04/2021 12:39 EDT 1 mg Given 09/04/2021 12:27 EDT 1 mg propOFol (DIPRIVAN) injection intravenous, PRN, Starting on Pallavi 09/04/21 at 1238, Until Pallavi 09/04/21 at 1430, Routine, Anesthesia Intraprocedure Given 09/04/2021 12:38 EDT 40 mg propOFol (DIPRIVAN) injection intravenous, FA IP EQF CONTINUOUS PRN FOR ONE STEP MEDS, Starting on Pallavi 09/04/21 at 1240, Until Pallavi 09/04/21 at 1430, Routine, Anesthesia Intraprocedure Rate Change 09/04/2021 13:32 EDT 40 mcg/kg/min 24.552 mL/hr Rate Change 09/04/2021 12:48 EDT 20 mcg/kg/min 12.276 mL/h r Rate Change 09/04/2021 12:44 EDT 40 mcg/kg/min 24.552 mL/h r documented in this encounter Care Teams Clinical Dietitian Relationship Specialty Start Date End Date Mayi Gonzalez NP [address] [place] [address] [address] [place] [phone] PCP - General 07/10/21 documented as of this encounter
--- OUTSIDE RECORDS SUMMARY | 2024-02-28 15:02 | XMS_ITS | Encounter Summary ---
Author Organization [facility] Address [address] [place] [address] Care Team Providers Care Administrative Operations Coordinator Name Role Phone Sandor Dixon MD Primary Care Provider Unavail able Encounter Details Date Type Department Care Team (Latest Contact Info) Description 07/09/2021 10:30 EDT - 07/09/2021 23:59 EDT Hospital Encounter [facility] Pre-Surgical Testing [address] [place] [address] Discharge Disposition: Home or Self Care Social [...] Sign Reading Time Taken Comments Blood Pressure - - Pulse - - Temperature - - Respiratory Rate - - Oxygen Saturation - - Inhaled Oxygen Concentration - - Weight 97.5 kg (215 lb) 07/09/2021 1050 EDT Height 182.9 cm (6') 07/09/2021 1050 EDT Body Mass Index 29.16 07/09/2021 1050 EDT documented in this encounter Medications at Time [...] for 10 days 3.5 g 1 09/04/2021 Sbgjh-2-[id number]-EPA-F srinath Oil 1,000 mg (120 mg-180 mg) capsule Take by mouth. simvastatin (ZOCOR) 10 mg tablet Take 10 mg by mouth every evening. documented as of this encounter Discharge Disposition Disposition Code Departure Means Destination Home or Self Care documented in this encounter OR Notes * Preprocedure Instructions - Eliza Harper RN - 07/09/2021 1030 EDT Chapincito Brown has been instructed as follows regarding medication administration for the day of the scheduled procedure. Date of Surgery: 07/17/21 Instructions for Taking Medications Day of Surgery Medication Sig Last Dose Hold DOS Take DOS aspirin chewable 81 mg tablet Take 81 mg by mouth daily. ASA stopped 07/07/21 cyanocobalamin (VITAMIN B-12) 500 mcg tablet Take 500 mcg by mouth daily. Hold 1 week prior to surgery fluticasone propionate (FLONASE) 50 mcg/actuation nasal spray Instill 100 mcg into both nostrils daily. Yes Glucosamine-Chondroitin (OSTEO BI-FLEX) 250-200 mg tablet Take by mouth. Hold 1 week prior to surgery hydroCHLOROthiazide (HYDRODIURIL) 25 mg tablet Take 12.5 mg by mouth daily. x losartan (COZAAR) 25 mg tablet Take 25 mg by mouth daily. Last dose 07/15 Qrerw-0-XMW-EPA-Fish Oil 1,000 mg (120 mg-180 mg) capsule Take by mouth. Hold 1 week prior to surgery simvastatin (ZOCOR) 10 mg tablet Take 10 mg by mouth every evening. hs * OR PreOp - Eliza Harper RN - 07/09/2021 1030 EDT COVID 19 Screening Perioperative at time of PAT Please document by exception (only check those that apply). Have you had any of the following symptoms recently?no Yes Chronic ? Cough Shortness of breath or difficulty breathing Fever Chills Fatigue Muscle or body aches Severe Headache New loss of taste or smell Sore throat Congestion or runny nose Rash Nausea, vomiting, or diarrhea (rare in adults. More common in children) Please elaborate if yes: If a chronic symptom is reported use your judgement if an anesthesia review is needed. Have you been in close contact with someone who has been diagnosed with Covid 19 (within past 2 weeks)?no If yes, and is a member of your household, what was the date of their onset of symptoms/positive test? If above date is within 15 days of dos, place for anesthesia review. Have you tested positive in the last 90 days for COVID by PCR and or home test?no If yes: Home Test Date: PCR Date: PCR Test Location: Vaccination Status: ___x Pt states fully vaccinated, ___ Verified in chart ___ Pt states unvaccinated -Do not instruct patient regarding COVID testing, let [facility] coordinate this -Communicate status on yellow form for DOS REMIND PATIENT/parents of pediatric patients: Patients with a pending COVID-19 test are expected toremain masked and socially distanced at all times while at work or school, and refrain from going inside restaurants, bars, or other public areas where people are likely to be unmasked, or crowded public places. If patient develops any of these symptoms between now and their surgery date instruct them to call us back at [phone] to report symptoms Visitor Policy: Surgical & Procedural -Adult: 2 support people -Pediatrics: 2 support people - Inpatients are now permitted 2 support people at a time. One person is permitted to remain overnight (must be masked). - Pediatric Inpatients may 2 support people at a time. - Inpatient Psychiatry patients may have 2 (vaccinated) support people at a time - Outpatient visits: 2 support people for adults and pedi. (Exception: Cancer Center and [facility] 4 Infusion- 1 support person) As a reminder, all support people are will be required to wear a mask that covers their nose and mouth for the entire time they are in the building. Anyone who cannot or will not wear a mask will be asked to leave. documented in this encounter Plan of Treatment Not on file documented as of this encounter Visit Diagnoses Not on filedocumented in this encounter Discontinued Medications Medication Sig Discontinue Reason Start Date End Da te lisinopriL (PRINIVIL) 10 mg tablet Take 10 mg by mouth daily. 07/09/2021 documented as of this encounter Historical Medications * This list may reflect changes made after this encounter. fluticasone propionate (FLONASE) 50 mcg/actuation nasal spray Instill 100 mcg into both nostrils daily. losartan (COZAAR) 25 mg tablet Take 25 mg by mouth daily. added in this encounter Care Teams Administrative Operations Coordinator Relationship Specialty Start Date End Date Sandor Dixon MD PCP - General 12/07/08 07/09/21 documented as of this encounter
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
--- OUTSIDE RECORDS SUMMARY | 2024-02-28 15:02 | XMS_ITS | Encounter Summary ---
Author Organization [facility] Address [address] [place] [address] Care Team Providers Care Range Feeder Name Role Phone Mayi Gonzalez NP Primary Care Provider [phone] Reason for Visit * Auth/Cert Specialty Diagnoses / Procedures Referred By Oliver martinez Referred To Contact Diagnoses Dermatochalasis of both upper eyelids Brow ptosis, bilateral Dermatochalasis of both upper eyelids [H02.831, H02.834] Brow ptosis, bilateral [H57.813] Procedures MI REPAIR BROW PTOSIS MI REVISION OF UPPER EYELID Bliateral Brow Ptosis and Upper Eyelid Repair BLEPHAROPLASTY, UPPER EYELID, BILATERAL Referral ID Status Reason Start Date Expiration Date Visits Re quested Visits Authorized [id number] 07/08/2021 11/07/2021 1 1 Encounter Details Date Type Department Care Team (Late st Contact Info) Description 09/04/2021 12:05 EDT - 09/04/2021 14:57 EDT Surgery [facility] Operating Room [address] [place] [address] Bridgett Panchal MD [address] [facility], [address] [place] [address] Bliateral Brow Ptosis and Upper Eyelid Repair [57422 (CPT??)] Surgery Details Date/Time Status Location OR Service Patient Class Case Class Case Type Trauma Case? 09/04/2021 1205 Posted [facility] OR FOR 04 [facility] Outpatient Surgery H - Elective Panel 1 Procedure LRB Anes Op Region Wound Class Comments Bliateral Brow Ptosis and Upper Eyelid Repair Bilateral Monitored Anesthesia Care Eye Class I/ Clean BLEPHAROPLASTY, UPPER EYELID, BILATERAL Bilateral Monitored Anesthesia Care Eye Class I/ Clean Surgeon Surgeon Role Service Panel Bridgett Panchal MD Primary Ophthalmology 1 documented in this encounter Social History Tobacco [...] Sign Reading Time Taken Comments Blood Pressure 142/77 09/04/2021 1445 EDT Pulse - - Temperature 36.3 ??C (97.3 ??F) 09/04/2021 1430 EDT Respiratory Rate 15 09/04/2021 1445 EDT Oxygen Saturation 97% 09/04/2021 1445 EDT Inhaled Oxygen Concentration - - Weight [...] Panchal (if unsure of appointment time, call [phone]) - If you have decreasing vision, uncontrollable pain, or significant bleeding call [phone] [address]Dr[address] Panchal documented in this encounter Medications [...] for 10 days 3.5 g 1 09/04/2021 Neboz-4-QBT-EPA-F srinath Oil 1,000 mg (120 mg-180 mg) [...] Code Departure Means Destination Home or Self Senior Care documented in this encounter Progress Notes * [...] ptosis and dermatochalasis Surgeon: Bridgett Panchal MD Surgery Nurse: Latahsa Reno Anesthesia: MAC and local 2% lidocaine [...] BRIEF OPERATIVE NOTE Surgeon: Bridgett Panchal MD Surgery Nurse: Latasha Reno Pre-Op Diagnosis: bilateral brow ptosis, [...] bilateral- Primary Dermatochalasis of both upper eyelids Dermatochalasis of both upper eyelids Brow ptosis, bilateral documented in this encounter Admitting Diagnoses Diagnosis Dermatochalasis of both upper eyelids Brow ptosis, bilateral documented in this encounter Administered Medications Inactive Administered Medications - up to 3 most recent administrations Medication Order MAR Action Action Date Dose Rate Site bupivacaine-EPINEPHrine (PF) 0.25 %-1:200,000 injection PRN, Starting on Pallavi 09/04/21 at 1253, Until Pallavi 09/04/21 at 1426, Routine, Intraprocedure Given 09/04/2021 12:53 EDT 6 mL Face lactated ringers (LR) infusion at 25 mL/hr, intravenous, CONTINUOUS, Starting on Pallavi 09/04/21 at 1145, Until Pallavi 09/04/21 at 1752, Routine, Preprocedure Continued by Anesthesia 09/04/2021 12:25 EDT 25 mL/hr New Bag 09/04/2021 11:15 EDT 25 mL/hr lactated ringers (LR) infusion at 75 mL/hr, intravenous, CONTINUOUS, Starting on Pallavi 09/04/21 at 1430, Until Pallavi 09/04/21 at 1752, Routine, Recovery (only) lidocaine-EPINEPHrine 2 %-1:100,000 injection PRN, Starting on Pallavi 09/04/21 at 1255, Until Pallavi 09/04/21 at 1426, Routine, Intraprocedure Given 09/04/2021 12:55 EDT 6 mL Face tetracaine HCl (PF) (PONTOCAINE) 0.5 % ophthalmic solution PRN, Starting on Pallavi 09/04/21 at 1253, Until Pallavi 09/04/21 at 1426, Routine, Intraprocedure Given 09/04/2021 12:53 EDT 2 Drops documented in this encounter Active and Recently [...] 0.1 mg/mL syringe 0.5 mg 1 022 lactated ringers (LR) infusion 1 09/04/2021 lidocaine (PF) 10 mg/mL (1 % ) injection 2 mg 1 09/04/2021 naloxone (NARCAN) injection 0.2 mg 1 2021 ondansetron (PF) (ZOFRAN) injection 4 mg 1 09/04/2021 Discharge Count Last Ordered Date First Orde red Date DISCHARGE PATIENT 1 09/04/2021 documented in this encounter Care Teams Range Feeder Relationship Specialty Start Date End Date Mayi Gonzalez NP [address] [place], [place] [address] [address] [place] [phone] PCP - General 07/10/21 documented as of this encounter
--- OUTSIDE RECORDS SUMMARY | 2024-02-28 15:02 | XMS_ITS | Encounter Summary ---
Author Organization [facility] Address [address] [place] [address] Care Team Providers Care Maintenance Director Name Role Phone Sandor Dixon MD Primary Care Provider Unavail able Reason for Visit * Reason Comments Referral Request Eye Problem * Consult (Routine) - Closed Specialty Diagnoses / Procedures Referred By Oliver martinez Referred To Contact Ophthalmology Diagnoses Dermatochalasis of eyelid Benny Burton, OD [address] [place] [address] Phone: tel: fax: Bridgett Panchal MD Phone: tel: fax: Referral ID Status Reason Start Date Expiration Date Visits Re quested Visits Authorized [id number] Closed 1 1 Encounter Details Date Type Department Care Team (Late st Contact Info) Description 03/03/2021 13:45 EST Office Visit [facility] Ophthalmology - [address] [address] Bridgett Panchal MD [address] [place] [address], [address] [place] [phone] Social History Tobacco Use Types Packs/Day Years Used Date Smoking Tobacco: Never Smokeless Tobacco: Never Sex and Gender Information Value Date Recorded Sex Assigned at Not on file Legal Sex Male 18:36 EST Gender Identity Male 09/02/2021 12:06 EDT Sexual Orientation Not on file documented as of this encounter Progress Notes * Bridgett Panchal MD - 03/03/2021 5097 EST Chief Complaint Patient presents with ??? Referral Request ??? Eye Problem Comments Referred by Dr. Burton for evaluation of bilateral upper eyelid dermatochalasis. Pt reports eyelids have been drooping for years, they seem to be worse in the morning. No diplopia, no complaint of dryness. He notes outer corner of the left eye becomes itchy at times, this is not new. SUSHILA in November with Dr. Burton, no history of eye surgery or trauma. No use of drops. +fhx of drooping eyelids, mother and sister. HPI The patient is a 75 y.o. male Referred by Dr. Burton for evaluation of bilateral upper eyelid dermatochalasis. Pt reports eyelids have been drooping for years, they seem to be worse in the morning. Nodiplopia, no complaint of dryness. He notes outer corner of the left eye becomes itchy at times, this is not new. SUSHILA in November with Dr. Burton, no history of eye surgery or trauma. No use of drops. +fhx of drooping eyelids, mother and sister. ROS Constitutional: NL ENT/Mouth NL Cardiovascular: High Blood Pressure, High Cholesterol Respiratory: NL Gastrointestinal: NL Genitourinary: NL Musculoskeletal: NL Integumentary: NL Neurologic: NL Psychiatric: NL Endocrine: Hematologic: NL Immunologic: NL Supervisor Telephone Clerks: Exposures: None Other: Attestation: Allergies include: Patient has no known allergies. Patient Active Problem List Diagnosis ??? Dermatochalasis of both upper eyelids ??? Brow ptosis, bilateral Outpatient Medications Marked as Taking for the 03/03/21 encounter (Office Visit) with Bridgett Panchal MD Medication Sig ??? aspirin chewable 81 mg tablet Take 81 mg by mouth daily. ??? cyanocobalamin (VITAMIN B-12) 500 mcg tablet Take 500 mcg by mouth daily. ??? Glucosamine-Chondroitin (OSTEO BI-FLEX) 250-200 mg tablet Take by mouth. ??? hydroCHLOROthiazide (HYDRODIURIL) 25 mg tablet Take 12.5 mg by mouth daily. ??? lisinopriL (PRINIVIL) 10 mg tablet Take 10 mg by mouth daily. ??? Smvzc-8-ZJD-EPA-Fish Oil 1,000 mg (120 mg-180 mg) capsule Take by mouth. ??? simvastatin (ZOCOR) 10 mg tablet Take 10 mg by mouth every evening. Base Eye Exam Visual Acuity (Snellen - Linear) Right Left Dist cc 20/40 +1 20/25 +1 Dist ph cc 20/25 -2 NI Correction: Glasses Pupils Pupils Dark Light Shape React APD Right PERRL 4 3 Round Brisk None Left PERRL 4 3 Round Brisk None Visual Morrison Right Left Full Full Extraocular Movement Right Left Full Full Neuro/Psych Oriented x3: Yes Mood/Affect: Normal Additional Tests Color Right Left Ishihara Slit Lamp and Fundus Exam External Exam Right Left External UL Dermatochalasis, Brow ptosis UL Dermatochalasis, Brow ptosis MRD1 0 mm 0 mm MRD2 6 mm 6 mm Levator 15 mm 15 mm Slit Lamp Exam Right Left Lids/Lashes UL Dermatochalasis UL Dermatochalasis Conjunctiva/Sclera White and quiet White and quiet Cornea Clear Clear Anterior Chamber Deep and quiet Deep and quiet Iris Round and reactive Round and reactive Lens NS NS Refraction Wearing Rx Age: 1yr Type: PAL DIAGNOSTIC TESTS: Malagon VF 64-2 - OU - Both Eyes Visual field: Superior 64 taped and untaped Indication: Bilateral Upper eyelid Dermatochalasis and Brow Ptosis Right eye: >30% improvement in superior VF with taping of the upper eyelid Left eye: >30% improvement in superior VF with taping of the upper eyelid External Photography - OU - Both Eyes Bilateral brow ptosis and dermatochalasis IMPRESSION & PLAN: Encounter Diagnoses Name Primary? Dermatochalasis of both upper eyelids Yes ??? Brow ptosis, bilateral Bilateral brow ptosis and dermatochalasis which is visually significant and he is symptomatic. Discussed possibility of direct brow lift and blepharoplasty. Risks, including, but not limited to, pain, bleeding, infection, overcorrection, undercorrection, asymmetry, vision loss, scarring, need for additional surgery, dry eye; benefits and alternatives, including observation, were discussed with the patient. His/her questions were answered. The patient elected to proceed with bilateral direct brow lift and blepharoplasty. Informed consent was obtained. He will hold his aspirin for 7 days preoperatively. I have reviewed the patient's past medical, family, social and surgical history. I have also reviewed the patient's medications, allergies, and problem list. I performed my own HPI and have reviewed the tech's ROS as well. I personally completed this exam myself. Bridgett Panchal MD I scribing for Bridgett Panchal MD, while she is personally performing the service. Eliana Katz, LEONARDA, 07/02/2021 16:10 The patient was instructed to call our office or go to emergency room if worse vision, worse symptoms, or new/other concerns arise. documented in this encounter Plan of Treatment Not on file documented as of this encounter Procedures Procedure Name Priority Date/Time Associated Diagnosis Comments EXTERNAL PHOTOGRAPHY - OU - BOTH EYES Routine 03/03/2021 17:22 EST Dermatochalasis of both upper eyelids Brow ptosis, bilateral MALAGON VF 64-2 - OU - BOTH EYES Routine 03/03/2021 17:21 EST Dermatochalasis of both upper eyelids Brow ptosis, bilateral documented in this encounter Results * EXTERNAL PHOTOGRAPHY - OU - BOTH EYES (03/03/2021 17:22 EST) Narrative [facility] POINT OF CARE - 03/03/2021 17:22 EST Bilateral brow ptosis and dermatochalasis Bridgett Panchal MD OPHTH PHOTOGRAPHY Final Resul t [facility] POINT OF CARE * MALAGON VF 64-2 - OU - BOTH EYES (03/03/2021 17:21 EST) Narrative [facility] POINT OF CARE - 03/03/2021 17:21 EST Visual field: Superior 64 taped and untaped Indication: Bilateral Upper eyelid Dermatochalasis and Brow Ptosis Right eye: >30% improvement in superior VF with taping of the upper eyelid Left eye: >30% improvement in superior VF with taping of the upper eyelid Bridgett Panchal MD OPHTH VISUAL FIELD Edited Res ult - Final [facility] POINT OF CARE documented in this encounter Visit Diagnoses Diagnosis Dermatochalasis of both upper eyelids- Primary Brow ptosis, bilateral documented in this encounter Historical Medications * This list may reflect changes made after this encounter. aspirin chewable 81 mg tablet Take 81 mg by mouth daily. Saqve-8-XSD-EPA-F thuan Oil 1,000 mg (120 mg-180 mg) capsule Take by mouth. hydroCHLOROthiazi de (HYDRODIURIL) 25 mg tablet Take 12.5 mg by mouth daily. Glucosamine-Chond roitin (OSTEO BI-FLEX) 250-200 mg tablet Take by mouth. simvastatin (ZOCOR) 10 mg tablet Take 10 mg by mouth every evening. cyanocobalamin (VITAMIN B-12) 500 mcg tablet Take 500 mcg by mouth daily. lisinopriL (PRINIVIL) 10 mg tablet Take 10 mg by mouth daily. 07/09/2021 added in this encounter Orders Case Request Count Last Ordered Date First Orde red Date CASE REQUEST OPERATING ROOM 1 03/03/2021 documented in this encounter Eye Exam Visual Acuity (Snellen - Linear) Right eye Left eye Dist cc 20/40 +1 20/25 +1 Dist ph cc 20/25 -2 NI Correction: Glasses Pupils Pupils Dark Light Shape React APD Right eye PERRL 4 3 Round Brisk None Left eye PERRL 4 3 Round Brisk None Visual Morrison Right eye Left eye Full Full Extraocular Movement Right eye Left eye Full Full Neuro/Psych Oriented x3: Yes Mood/Affect: Normal Color Right eye Left eye Thuanihkeo External Exam Right eye Left eye External UL Dermatochalasis, Brow ptosis UL Dermatochalasis, Brow ptosis Slit Lamp Exam Right eye Left eye Lids/Lashes UL Dermatochalasis UL Dermatocha lasis Conjunctiva/Sclera White and quiet White and yakov et Cornea Clear Clear Anterior Chamber Deep and quiet Deep and quiet Iris Round and reactive Round and servando ctive Lens NS NS External Right eye Left eye MRD1 0 mm 0 mm MRD2 6 mm 6 mm Levator 15 mm 15 mm Wearing Rx Age: 1yr Type: PAL Care Teams Maintenance Director Relationship Specialty Start Date End Date Sandor Dixon MD PCP - General 12/07/08 07/09/21 documented as of this encounter
--- OUTSIDE RECORDS SUMMARY | 2024-02-28 15:02 | XMS_ITS | Encounter Summary ---
Author Organization [facility] Address [facility] [place] [address] Care Team Providers Care Crankshaft Grinder Name Role Phone Gaston Jimenez MD Primary Care Provider [phone] Encounter Details Date Type Department Care Team (Late st Contact Info) Description 03/14/2015 Orders [place] [address] Latasha Villegas RN Hx of osteomyelitis Social History Tobacco Use Types Packs/Day Years Used Date Smoking Tobacco: Never Assessed Sex and Gender Information Value Date Recorded Sex Assigned at Not on file Gender Identity Not on file Sexual Orientation Not on file documented as of this encounter Plan of Treatment Not on file documented as of this encounter Results * CROW, legs, multiple levels (03/28/2015 2:02 PM EST) VB Text Report Department: Vascular Surgery Lab Patient: [id number] (CHAPINCITO RIVERO) CPT: 46226 ICD10: Z87.39 Referring Physician: MARCIO ESCAMILLA M.D. [...] disorders documented in this encounter Care Teams Crankshaft Grinder Relationship Specialty Start Date End Date Gaston Jimenez MD [address] [place] [address] PCP - General Family Medicine 03/13/15 01/05/21 documented as of this encounter
--- OUTSIDE RECORDS SUMMARY | 2024-02-28 15:02 | XMS_ITS | Encounter Summary ---
Author Organization [facility] Address [address] [place] [address] Care Team Providers Care Vp Securities Name Role Phone Unavailable Primary Care Provider Unavailabl e Encounter Details Date Type Department Care Team (Late st Contact Info) Description 10/10/2007 Before PRISM Converted Visit ([place]) [address] [address] Geraldo Ni MD [address] [place], [place] [id number] Social History Tobacco Use Types Packs/Day Years [...] Date/Time Associated Diagnosis Comments SURGICAL PATHOLOGY Routine 10/10/2007 0:00 EDT documented in this encounter Results * SURGICAL PATHOLOGY (10/10/2007 0:00 EDT) Pathology Report: SURGICAL PATHOLOGY REPORT ? Reports generated via electronic interface contain original data; ? however they are lacking the format of the original report. ? Caution should be taken when reading/interpreti ng unformatted reports. ? Name: ? JOSEFA, CHAPINCITO ? Accession #: ? [id number] ? : ? 1945 (Age: 62) ??M ? Collect Date: ? 10/10/2007 ? Location: ? [facility] ? Receive Date: ? 10/10/2007 ? Provider: GERALDO NI MD ? Copy to: MEMO JOSEPH APRN ? Final Pathologic Diagnosis: ? A. ?Colon, ascending, flat polyp, biopsies: ? 1. ?Cauterized colonic mucosa (multiple pieces) with features suggestive of hyperplastic changes. ? B. ?Colon, ascending, polyp, biopsies: ? 1. ?Cauterized colonic mucosa (3 pieces) with features suggestive of ? tubular adenoma. ? C. ?Colon, sigmoid, polyp, biopsy: ? 1. ?Cauterized colonic mucosa (1 piece) with features suggestive of ? inflammatory polyp. ? Document reviewed and electronically signed by: ? Ken Carias MD ? Report ??Date: 10/12/2007 17:33 ? By the signature above, the attending physician certifies that he/she has ? personally conducted a gross and/or microscopic examination of the described ? specimens and rendered or confirmed the above diagnosis. ? Specimen(s) Received: ? A. ?Polyp ascending colon (#2) ? B. ? Polyp ascending colon (#3) ? C. ? Sigmoid polyp (#4) ? Clinical History: ? H/O colon adenoma. ??A. flat polyp, approx 2 x 2 cm. ? Gross Description: ? Received in [facility]'s fixative labelled Josefa and 2 ??polyp ascending colon are six biopsies which vary in size from 0.2 x 0.2 x 0.1 cm up to 0.6 x ?? 0.4 x 0.3 cm. ??The specimens are submitted intact as (A1) and (A2). ? Received in [facility]'s fixative labelled Josefa and 3 ??polyp ascending ? colon are three biopsies which vary in size from 0.2 x 0.2 x 0.1 cm up to 0.3 x 0.2 x 0.2 cm. ??The specimens are submitted intact as (B). ? Received in [facility]'s fixative labelled Josefa and 4 ??sigmoid polyp is a 0.3 x 0.2 x 0.2 cm polypoid structure. ??The specimen is submitted intact as (C). (TEENA Mc)/ally ? End of Report ? [facility] 10/10/2007 10/10/2007 19: 18 EDT us Geraldo Ni MD PATHOLOGY ORDERABLES Final Resul t [facility] [address] [place] [address] documented in this encounter Visit Diagnoses Not on filedocumented in this encounter
--- OUTSIDE RECORDS SUMMARY | 2024-02-28 15:02 | XMS_ITS | Clinical Summary ---
Author Organization [facility] Address [facility] [place] [address] Care Team Providers Care Ring Barker Operator Name Role Phone Mayi Gonzalez APRN Primary Care Provider Allergies No known active allergies Medications Medication Sig Dispensed Refills Start Date End Date Status hydrochlorothiazide (HYDRODIURIL) 25 mg Tablet Take 25 mg by mouth daily. Active fish oil-omega-3 fatty acids with vitamin E 1,000 mg Capsule Take by mouth daily. Active b complex vitamins Capsule Take 1 capsule by mouth daily. Active GLUCOSAMINE/D3/ASHER IA YARI (OSTEO BI-FLEX, 5-LOXIN, ORAL) Take by mouth 2 times daily. Active simvastatin (ZOCOR) 20 mg Tablet Take 20 mg by mouth nightly. Active Garlic 1,000 mg Capsule Take by mouth daily. Active aspirin 81 mg Tablet, Delayed Release (E.C.) Take 81 mg by mouth daily. Active losartan (COZAAR) 25 mg Tablet TAKE ONE TABLET BY MOUTH EVERY DAY 4 10/13/2017 Active Sodium Fluoride (Clinpro 5000) 1.1 % Paste BRUSH ONCE DAILY FOR 2 MINUTES AND AT BEDTIME 12/14/2020 Active Active Problems No known active problems Immunizations Name Administration Dates Next Due Influenza Vaccine, Whole 12/26/2009,01/18/2006,1 Pneumococcal 23-Valent Polys accharide (Pneumovax 23) 08/04/2004 Social History Tobacco Use Types Packs/Day Years Used Date Smoking Tobacco: Former Smokeless Tobacco: Never Sex and Gender Information Value Date Recorded Sex Assigned at Not on file Gender Identity Not on file Sexual Orientation Not on file Last Filed Vital Signs Vital Sign Reading [...] Mass Index 30.68 03/28/2015 2:39 PM EST Plan of Treatment Health Maintenance Due Date Last Done Comments Hepatitis C Screening 07/28/1961 Tetanus/Diphtheria/Pertussis Vaccines (1 - Tdap) 07/28/1962 Zoster vaccine (1 of 2) 07/28/1993 Advance Directive 07/28/1998 Pneumoccocal Vaccine: 65+ (2 of 2 - PCV) 08/04/2005 08/04/2004 RSV Vaccine (1 - 1-dose 75+ series) 07/28/2018 Covid-19 Vaccine (1 - season) 2023 Influenza (Flu) vaccine (1 o f 1 - Influenza standard series) 10/31/2023 12/26/2009, 01/18/2006, 12/29/2004 Care Teams Ring Barker Operator Relationship Specialty Start Date End Date Mayi Gonzalez APRN [address] [place] [address] [address] [place], [place] [id number] PCP - General Family Medicine 01/06/21
--- OUTSIDE RECORDS SUMMARY | 2024-02-28 15:02 | XMS_ITS | Encounter Summary ---
Author Organization [facility] Address [address] [place] [address] Care Team Providers Care Boardinghouse Keeper Name Role Phone Mayi Gonzalez NP Primary Care Provider Encounter Details Date Type Department Care Team (Late st Contact Info) Description 11/06/2022 Lab Requisition [facility] Pathology & Laboratory Medicine - [facility] [address] [place] [address] Outr Resulting Lab, Provider Social History Tobacco [...] Procedure Name Priority Date/Time Associated Diagnosis Comments HEPATITIS C AB W REFLEX TO HCV RNA BY PCR Routine 11/06/2022 14:49 EDT documented in this encounter Results * HEPATITIS C AB W REFLEX TO HCV RNA BY PCR (11/06/2022 14:49 EDT) Hep C Antibody Negative Negative 11/09/2022 10:37 EDT [facility] Blood VENOUS BLOOD / Unknown 11/06/2022 14:49 EDT 11/06/2022 22:01 EDT us Provider Outr Resulting Lab CHEMISTRY & BLOOD GA S ORDERABLES Final Result [facility] [address] [place] [address] documented in this encounter Visit Diagnoses Not on filedocumented in this encounter Care Teams Boardinghouse Keeper Relationship Specialty Start Date End Date Mayi Gonzalez NP [address] [place] [phone] PCP - General 07/10/21 documented as of this encounter
--- OUTSIDE RECORDS SUMMARY | 2024-02-28 15:02 | XMS_ITS | Referral Summary ---
Author Organization [facility] Address [address] [place] [address] Care Team Providers Care Rn Family Name Role Phone Mayi Gonzalez NP Primary Care Provider Allergies No known active allergies Medications cyanocobalamin (VITAMIN B-12) 500 mcg tablet Take 500 mcg by mouth daily. Active simvastatin (ZOCOR) 10 mg tablet Take 10 mg by mouth every evening. Active Glucosamine-Cho ndroitin (OSTEO BI-FLEX) 250-200 mg tablet Take by mouth. Active hydroCHLOROthia zide (HYDRODIURIL) 25 mg tablet Take 12.5 mg by mouth daily. Active Qolre-5-TXY-EPA -Fish Oil 1,000 mg (120 mg-180 mg) capsule Take by mouth. Active aspirin chewable 81 mg tablet Take 81 mg by mouth daily. Active losartan (COZAAR) 25 mg tablet Take 25 mg by mouth daily. Active fluticasone propionate (FLONASE) 50 mcg/actuation nasal spray Instill 100 mcg into both nostrils daily. Active neomycin-polymy freddy-dexamethaso ne (MAXITROL) ophthalmic ointment Apply small amount to both upper eyelids and both eyebrows 2-3 times daily for 10 days 3.5 g 1 09/04/2021 Active Active Problems Patient Care Coordination No te Formatting of this note migh t be different from the original. Clinic: Please confirm that PT does not have a Middle Initial. Deborah Diop 03/03/2021 12:11 Problem Noted Date Diagnosed Date Dermatochalasis of both upper eyelids 06/09/2021 Overview (06/09/2021): Added automatically from request for surgery [id number] Brow ptosis, bilateral 06/09/2021 Overview (06/09/2021): Added automatically from request for surgery [id number] Immunizations Name Administration Dates Next Due Covid-19 mRNA Vaccine (MODER NA COVID-19) PF 0.5 ml IM (12 yrs+) 12/28/2020,05/03/2020,04/05/2020 Social History Tobacco Use Types Packs/Day Years [...] 12:06 EDT Sexual Orientation Not on file Last Filed [...] Body Mass Index 30.59 09/04/2021 1047 EDT Plan of Treatment Not on file Insurance [place] [employer] [place] Care Teams Rn Family Relationship Specialty Start Date End Date Mayi Gonzalez NP [address] [place] [address] [address] [place] [address] [facility] - General 07/10/21
--- OUTSIDE RECORDS SUMMARY | 2024-02-28 15:02 | XMS_ITS | Encounter Summary ---
Author Organization [facility] [place] [address] Care Team Providers Care Program Arranger Name Role Phone Mayi Gonzalez APRN Primary Care Provider [phone] Reason for Visit * Reason Comments Skin Check Encounter Details Date Type Department Care Team (Late st Contact Info) Description 01/06/2021 3:45 PM EST Office Visit Dermatology at [address] [place] [address] James Kincaid MD [address] [facility] [place] [address] Seborrheic keratosis; AK (actinic keratosis) Social History Tobacco Use Types Packs/Day Years Used Date Smoking Tobacco: Former Smokeless Tobacco: Never Sex and Gender Information Value Date Recorded Sex Assigned at Not on file Gender Identity Not on file Sexual Orientation Not on file documented as of this encounter Progress Notes * James Kincaid MD - 01/06/2021 3:45 PM EST Problem: Actinic keratoses Chapincito follows up and is now 75. Here today with his and. He is referred back because of some lesions on the face his nose forehead and scalp. Also has a lesion on his right hip and his left heel. Physical examination reveals actinic keratoses on the patient's bald occipital scalp and on the left tip of the nose. He has a seborrheic keratosis on the right hip. He has some hyperkeratosis on theon the left heel which overlies a area of bony prominence? Bone spur. Assessment plan Actinic keratoses, left nasal tip and occipital scalp 1. LN 2 x 2 applied to each of 6 sites Seborrheic keratosis right hip 1. Patient reassured Hard clavus left heel with? Underlying bone spur 1. Recommend referral to podiatry. CC: Mayi Gonzalez APRN documented in this encounter Plan of Treatment Not on file documented as of this encounter Visit Diagnoses Diagnosis Seborrheic keratosis Other seborrheic keratosis AK (actinic keratosis) Actinic keratosis documented in this encounter Care Teams Program Arranger Relationship Specialty Start Date End Date Mayi Gonzalez APRN [address] [place] [address] PCP - General Family Medicine 01/06/21 documented as of this encounter
--- OUTSIDE RECORDS SUMMARY | 2024-02-28 15:02 | XMS_ITS | Encounter Summary ---
Author Organization [facility] Address [facility] [place] [address] Care Team Providers Care Log Inspector Name Role Phone Gaston Jimenez MD Primary Care Provider [phone] Reason for Visit * Reason Comments Follow-up Skin Check Encounter Details Date Type Department Care Team (Late st Contact Info) Description 12/21/2017 2:30 PM EDT Office Visit Dermatology at [address] [place] [address] James Kincaid MD [address] [facility] [place] [address] AK (actinic keratosis) Social History Tobacco Use Types Packs/Day Years Used Date Smoking Tobacco: Former Smokeless Tobacco: Never Sex and Gender Information Value Date Recorded Sex Assigned at Not on file Gender Identity Not on file Sexual Orientation Not on file documented as of this encounter Progress Notes * James Kincaid MD - 12/21/2017 2:30 PM EDT Problem: Skin lesions of concern Chapincito follows up today with his Jamee. He is concerned about a burning and stinging in the left corner of his eye. This is at the lateral canthal area. He also like me to check some rough spots onhis scalp. I last saw the patient in 1998 per Physical examination was a pleasant 72-year-old woman who has actinic keratoses 10 present over thebald parietal scalp. He has mild erythema but no actual dermatitis no other cutaneous findings at the left lateral canthus examination of the face scalp and ears the hands otherwise benign. Assessment and plan: Actinic keratoses of scalp 1. LN 2 x 2 applied to each of 10 sites. Mild erythema left lateral canthus 1. Patient is currently getting excellent relief with either bag balm or 1% hydrocortisone ointmentcontinue these 2. Patient reassured about benign examination of both here and the rest of his face and hands 3. Patient in particular his is concerned about a family history of malignant melanoma in the patient's mother. I reassured her that I see no evidence of any atypical pigmented lesions today. CC: Gaston Jimenez MD documented in this encounter Plan of Treatment Not on file documented as of this encounter Visit Diagnoses Diagnosis AK (actinic keratosis) Actinic keratosis documented in this encounter Care Teams Log Inspector Relationship Specialty Start Date End Date Gaston Jimenez MD [address] [place] [address] PCP - General Family Medicine 03/13/15 01/05/21 documented as of this encounter
--- OUTSIDE RECORDS SUMMARY | 2024-02-28 15:02 | XMS_ITS | Encounter Summary ---
Author Organization [facility] Address [address] [place] [address] Care Team Providers Care Tax Accounting Assistant Name Role Phone Sandor Metcalf MD Primary Care Provider Unavail able Encounter Details Date Type Department Care Team (Late st Contact Info) Description 09/29/2004 Results Only [facility] [address] [place] [address] Geraldo Ni MD [address] [place] [address] Social History Tobacco Use Types Packs/Day Years [...] Date/Time Associated Diagnosis Comments SURGICAL PATHOLOGY Routine 09/29/2004 0:00 EDT documented in this encounter Results * SURGICAL PATHOLOGY (09/29/2004 0:00 EDT) Pathology Report: SURGICAL PATHOLOGY REPORT Reports generated via electronic interface contain original data; however they are lacking the format of the original report. Caution should be taken when reading/interpreti ng unformatted reports. Name: ? JOSEFA CHAPINCITO ? Accession #: ? [id number] ? : ? 1945 (Age: 59) ??M ? Collect Date: ? 09/29/2004 ? Location: ? [facility] ? Receive Date: ? 09/30/2004 ? Provider: GERALDO NI MD Copy to: SANDOR METCALF MD ? Final Pathologic Diagnosis: ? Colon, ascending, biopsy: ? - Tubular adenoma. Document reviewed and electronically signed by: Corwin Marx MD Report ??Date: 10/02/2004 17:21 By the signature above, the attending physician certifies that he/she has personally conducted a gross and/or microscopic examination of the described specimens and rendered or confirmed the above diagnosis. Specimen(s) Received: ? Polyp ascending colon Clinical History: ? Screening colonoscopy Gross Description: ? Received in Hollande's fixative labelled Josefa and polyp ascending colon is a page-pink, 0.2 x 0.2 x 0.2 cm soft tissue fragment. ??The specimen is entirely submitted in one cassette. ??(Isacc Dash)/[facility] End of Report [facility] 09/29/2004 09/30/2004 15: 11 EDT us Geraldo Ni MD PATHOLOGY ORDERABLES Final Resul t [facility] [address] [place] [address] documented in this encounter Visit Diagnoses Not on filedocumented in this encounter Care Teams Tax Accounting Assistant Relationship Specialty Start Date End Date Sandor Metcalf MD PCP - General 12/07/08 07/09/21 documented as of this encounter
--- OUTSIDE RECORDS SUMMARY | 2024-02-28 15:02 | XMS_ITS | Clinical Summary ---
Author Organization [facility] Address [address] [place] [address] Care Team Providers Care Wood Drill Operator Name Role Phone Mayi Gonzalez NP Primary Care Provider [phone] Allergies No known active allergies Medications cyanocobalamin (VITAMIN B-12) 500 mcg tablet Take 500 mcg by mouth daily. Active simvastatin (ZOCOR) 10 mg tablet Take 10 mg by mouth every evening. Active Glucosamine-Cho ndroitin (OSTEO BI-FLEX) 250-200 mg tablet Take by mouth. Active hydroCHLOROthia zide (HYDRODIURIL) 25 mg tablet Take 12.5 mg by mouth daily. Active Qhzpo-1-QPQ-EPA -Fish Oil 1,000 mg (120 mg-180 mg) [...] (06/09/2021): Added automatically from request for surgery [id number] Brow ptosis, bilateral 06/09/2021 Overview (06/09/2021): Added automatically from request for surgery [id number] Immunizations Name Administration Dates Next Due Covid-19 mRNA Vaccine (MODER NA COVID-19) PF 0.5 ml IM (12 yrs+) 12/28/2020,05/03/2020,04/05/2020 Surgical History Surgery Date Site/Laterality Comments JOINT REPLACEMENT 03/01/2015 - 02/29/2016 left knee STJ COLONOSCOPY TIBIA FRACTURE SURGERY - bone grafts many surgerys EYE SURGERY Medical History Medical History Date Comments Cataract History of general anesthesia Activity, other involving ca rdiorespiratory exercise 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, 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, 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 Hyperlipidemia Hypertension controlled with medication Arthritis Allergy to pollen Ptosis Other states following surge ry of eye and adnexa Family History Medical History Relation Comments Glaucoma Father Stroke Father Glaucoma Paternal Grandfather Arthritis Neg Hx Keratoconus Neg Hx Macular Degeneration Neg Hx Retinal Detachment Neg Hx Retinitis Pigmentosa Neg Hx Relation Status Comments Father Paternal Grandfather Social History Tobacco Use Types Packs/Day Years [...] 12:06 EDT Sexual Orientation Not on file Obstetrics History Last Filed Vital Signs Vital Sign Reading [...] 30.59 09/04/2021 1047 EDT Plan of Treatment Health Maintenance Due Date Last Done Comments Fall Risk Screening 07/28/2008 RSV Immunization ( o r 60+ Years) (1 - 1-dose 75+ series) 07/28/2018 COVID-19 Vaccine ( season) 2023 12/28/2020, 05/03/2020, 04/05/2020 Insurance [facility] MEDICARE [facility]CO [place] Care Teams Wood Drill Operator Relationship Specialty Start Date End Date Mayi Gonzalez NP [address] [place] [address] [address] [place] [id number] PCP - General 07/10/21
--- OUTSIDE RECORDS SUMMARY | 2024-02-28 15:02 | XMS_ITS | Continuity of Care Document ---
Author Organization [facility] Address [address] [place] [id number] Encounter LTTL_WY FIN NBR [id number] Date(s): 06/29/22 - 06/29/[address] [address]- Encounter Diagnosis Encounter for drug screening(Discharge Diagnosis) - 06/29/22 Discharge Disposition: Home or Self Care Attending Physician: Carolyne Martínez PA-C
== END 2024-02-28 15:19 ==
LOC: DI 15:00
PROVIDERS: PCP Nurse Practitioner Family; Visit Provider Physician Assistant
DX: S59.902A Unspecified injury of left elbow, initial encounter (principal); X58.XXXA Exposure to other specified factors, initial encounter
CPT/HCPCS: 73080

== ENCOUNTER 2024-03-07 09:06 | Outpatient (CLI) | payer MEDICARE, SELFPAY ==
--- NOTE | 2024-03-07 08:31 | DI.RAD_ITS ---
Exam(s) XR ELBOW LT COMPLETE XR FOREARM LT EXAM: XR ELBOW LT COMPLETE and XR forearm LT CLINICAL HISTORY: r/o fracture, crushing injury left arm, S47.2XXA. TECHNIQUE: 2D digital imaging was performed of the left forearm and elbow. Five images were obtaine d. AP, lateral and oblique views were obtained. COMPARISON: CR XR ELBOW LT COMPLETE from 02/28/2024 FINDINGS: BONES: No acute or healing fracture is present. No bony destructive lesion is seen. There is an enthe sophyte at the triceps insertion on the olecranon. JOINTS: The elbow is normally aligned. The joint effusion has decreased in size. SOFT TISSUE: There is persistent mild edema in the soft tissues around the elbow. No soft tissue gas is seen. IMPRESSION: No evidence of an acute or healing fracture or dislocation. If there is concern for soft tissue inju ry, MRI of the elbow should be obtained. DATA REPOSITORY: RADIATION DOSE DELIVERED:
== END 2024-03-07 09:26 ==
LOC: DI 09:08
PROVIDERS: PCP Nurse Practitioner Family; Visit Provider Nurse Practitioner Family
DX: S50.02XD Contusion of left elbow, subsequent encounter (principal); X58.XXXD Exposure to other specified factors, subsequent encounter
CPT/HCPCS: 73080; 73090

== ENCOUNTER 2024-11-09 13:42 | Outpatient (CLI) | payer MEDICARE, SELFPAY ==
--- NOTE | 2024-11-09 13:30 | RT.EKG_ITS ---
APPROVED REPORT Exam: Resting ECG Reason for Exam: irregular heartbeat Patient Location: O HR:54 bpm ECG Measurements Heart Rate 54 AXIS TX [id number] P [id number] QRSd 96 QRS 37 QT 440 T 29 QTc 417 Conclusion Atrial fibrillation...V-rate 43- 62, irreg A-activity Otherwise unremarkable
== END 2024-11-09 13:43 | disposition home or self-care (01) ==
LOC: DI.CM 13:44
PROVIDERS: PCP Nurse Practitioner Family; Visit Provider Nurse Practitioner Family
DX: I49.9 Cardiac arrhythmia, unspecified (principal); I48.0 Paroxysmal atrial fibrillation
CPT/HCPCS: 93010

== ENCOUNTER 2024-11-09 14:03 | Outpatient (CLI) | payer MEDICARE, SELFPAY ==
[2024-11-09 16:25] LABS: Abs Immature Grans 0.01 10^3/uL (0.0-0.06); HCT 40.5 % (40.0-50.0); HGB 13.3 g/dL (13.5-17.5); Immature Grans % 0.1 %; MCH 31.3 pg (27.0-33.0); MCHC 32.8 % (32.0-36.0); MCV 95 fL (80-95); MPV 10.3 fL (8.0-11.0); Platelet Count 247 10^3/uL (130-400); RBC 4.25 10^6/uL (4.36-5.78); RDW 12.5 % (11.8-14.1); RDW-SD 43.5 fL; WBC 7.16 10^3/uL (4.4-10.8)
[2024-11-09 17:05] LABS: Hemoglobin A1C 6.1 % (<5.7)
[2024-11-09 18:15] LABS: ALT 37 U/L (16-63); AST 24 U/L (15-37); Albumin 3.7 g/dL (3.4-5.0); Alkaline Phosphatase 91 U/L (46-116); Anion Gap 9.1 mmol/L (3-11); BUN 22 mg/dL (7-18); Bilirubin, Total 0.7 mg/dL (0.2-1.0); CO2 25.9 mmol/L (21.0-32.0); Calcium 9.0 mg/dL (8.5-10.1); Calculated LDL 84 mg/dL (<100); Chloride 103 mmol/L (98-107); Cholesterol 168 mg/dL (<200); Estimated GFR 85.80 (mL/min/1.73m2); Glucose 94 mg/dL (74-106); HDL Cholesterol 70 mg/dL (>or=40); Potassium 4.2 mmol/L (3.5-5.1); Sodium 138 mmol/L (136-145); TSH (W/Ref FT4) 3.27 uIU/mL (0.36-3.74); Total Protein 6.9 g/dL (6.4-8.2); Triglyceride 71 mg/dL (<150)
== END 2024-11-09 14:04 | disposition home or self-care (01) ==
LOC: LOS 14:05
PROVIDERS: PCP Nurse Practitioner Family; Visit Provider Nurse Practitioner Family
DX: I48.91 Unspecified atrial fibrillation (principal); E78.5 Hyperlipidemia, unspecified; Z00.00 Encounter for general adult medical examination without abnormal findings; R73.03 Prediabetes
CPT/HCPCS: 36415; 80053; 80061; 83036; 84443; 85025

== ENCOUNTER 2024-11-14 07:59 | Outpatient (CLI) | payer MEDICARE, SELFPAY | END 2024-11-14 08:00 | disposition home or self-care (01) | PROVIDERS: PCP Nurse Practitioner Family; Visit Provider Nurse Practitioner Family | DX: I48.91 Unspecified atrial fibrillation (principal) | CPT/HCPCS: 93246 ==

== ENCOUNTER 2024-11-21 00:42 | Outpatient (CLI) | payer MEDICARE, SELFPAY ==
--- NOTE | 2024-11-21 13:45 | DI.US_ITS ---
APPROVED REPORT EXAM: Comprehensive 2D, Doppler, and color-flow Echocardiogram Patient Location: Out-Patient Soils Engineer: Mariah Trejo RDCS (AE) Indications: New A Fib Other Information Study Quality: Adequate Conclusion Normal left ventricular wall thickness and chamber size. Ejection fraction is 60%. Wall motion is normal Normal right ventricular size and function Both atria are moderately enlarged Aortic valve is sclerotic and trileaflet without stenosis or regurgitation Normal mitral valve with trace regurgitation Mild tricuspid regurgitation. Estimated right ventricular systolic pressure is 38 mmHg Dilated ascending aorta measuring 3.94 cm Wall motion Left Ventricle The left ventricle is normal size. The left ventricular systolic function is normal. The left ventricular ejection fraction is within the normal range. There is normal left ventricular wall thickness. There is normal LV segmental wall motion. There is no ventricular septal defect visualized. LVEF is 60%. Right Ventricle The right ventricle is normal size. The right ventricular systolic function is normal. Atria Left atrium is moderately dilated. Right atrium is moderately dilated. The interatrial septum is intact with no evidence for an atrial septal defect. Aortic Valve The Aortic valve is sclerotic. Aortic valve is trileaflet. There is no aortic valvular stenosis. No aortic regurgitation is present. Mitral Valve The mitral valve is normal in structure. No evidence of mitral valve stenosis. Trace mitral regurgitation. Tricuspid Valve The tricuspid valve is normal in structure. There is no tricuspid valve stenosis. Mild tricuspid regurgitation. The RVSP is 37.5_ mmHg. Pulmonic Valve The pulmonary valve is normal in structure. There is no pulmonic valvular stenosis. There is no pulmonic valvular regurgitation. Great Vessels The aortic root is normal in size. The ascending aorta is mildly dilated. Aortic arch is not well visualized. The IVC collapses <50% with inspiration. Pericardium There is no pericardial effusion. 2D Dimensions IVSD d PLAX 1.03 cm M: 0.6-1.2 Ao Root d 3.42 cm M: 3.1 - 3.7 LVPW d PLAX 1.03 cm M: 0.6 - 1.2 Ao Asc Diam d 3.94 cm M: 2.6 - 3.4 LVID d PLAX 4.75 cm M: 4.2 - 5.8 LVDs 3.25 cm M: 2.5 - 4.0 LV EF Teichholz 59.4 % FS 31.55 % LV EDV (Teich) 104.7 mL LV ESV (Teich) 42.5 mL M-Mode TAPSE 1.88 cm (M/F) >1.7 Auto EF LV EDV A4C 98.0 mL LV EDV A2C 103.7 mL LV EDV BP 100.5 mL LV ESV A4C 40.9 mL LV ESV A2C 44.3 mL LV ESV BP 42.5 mL LVEF(%) A4C 58.2 % LVEF(%) A2C 57.3 % LVEF(%) BP 57.7 % LV SV A4C 57.1 ml LV SV A2C 59.4 ml LV SV BP 57.9 ml LV CO A4C 3.1 L/min LV CO A2C 4.1 L/min LV CO BP 3.6 L/min HR A4C 54.88 BPM HR A2C 68.57 BPM LV EDV Index (BP) LA Volume LA Length A4C 6.2 cm LA Length A2C 6.0 cm LA Area A4C s 24.47 cm2 LA Area A2C s 22.02 cm2 LA Vol A4C A-L 82.06 mL LA Vol A2C A-L 68.35 mL LA Vol Biplane A-L 76.0 mL LA Vol/BSA A4C A-L LA Vol/BSA A2C A-L LA Vol/BSA BP A-L 34.8 mL/m2 LA Vol A4C MOD 75.0 mL LA Vol A2C MOD 62.6 mL LA Vol BP MOD 69.5 mL RA Volume RA Area A4C 17.9 cm2 RA ESV A4C (A-L) 46.5mL RA Vol/BSA A4C A-L RA Length A4C 5.8 cm RA ESV A4C (MOD) 45.4mL LV Diastology MV E' medial 0.087 (>0.07 m/s) MV E Vmax 1.21 (0.4-1.3 m/s) MV E' lateral 0.107 (>0.1 m/s) Aortic Valve AoV Vmax 1.44 m/s LVOT Vmax 0.96 m/s AoV Peak Grad 8.3 mmHg LVOT Peak Grad 3.7 mmHg AoV Area (Vmax) 2.00 cm2 LVOT VTI 0.237 m AoV VTI 0.336 m LVOT Mean Grad 1.9 mmHg AoV Mean Newton. 0.96 m/s LVOT SV 71.37 mL AoV Mean Grad 4.3 mmHg LVOT Diam s 1.95 cm AoV Area (VTI) 2.13 cm2 AV Regurg Peak Gr. 8.30 mmHg Velocity Ratio 0.67 Mitral Valve MV Vmax TIPS 1.23 m/s MV Mean Grad 1.6 (<2mmHg) MV Area PHT 4.79 cm2 MV VTI 0.319 m Pulmonary Valve PV Vmax 0.78 (0.5-1.5 m/s) RVOT Vmax 0.63 m/s PV Peak Grad 2.4 mmHg RVOT Peak Gr. 1.6 mmHg PV Mean Newton 0.56 m/s RVOT VTI 0.179 m PV Mean Grad 1.5 mmHg RVOT Mean Gr. 1.0 mmHg Tricuspid Valve RA Pressure 8.00 mmHg TR Vmax 2.72 m/s TV S' 0.10 m/s TR Peak Grad 29.4 mmHg RVSP (TR) 37.5 mmHg
== END 2024-11-21 01:02 ==
PROVIDERS: PCP Nurse Practitioner Family; Visit Provider Nurse Practitioner Family
DX: I48.91 Unspecified atrial fibrillation (principal); I36.0 Nonrheumatic tricuspid (valve) stenosis
CPT/HCPCS: 93306

== ENCOUNTER 2024-12-07 09:14 | Outpatient (CLI) | payer MEDICARE, SELFPAY ==
--- NOTE | 2024-12-07 11:37 | CER_ITS ---
Date of service: 12/07/24 Time of Service: 11:37 Cardiac Event Recorder Referring Provider:: Mayi Gonzalez Indications:: Atrial fibrillation Cardiac Event Note: This is a cardiac event monitor. Patient was monitored for 13 days and 23 hours Rhythm throughout was atrial flutter flutter/fibrillation. Average heart rate overall was 69. Minimum was 24, maximum 141 Heart rates in atrial fibrillation were controlled during the recording There were rare ventricular ectopic beats. A 17 beat run of nonsustained ventricular tachycardia occurred during sleep There were no pauses greater than 4 seconds. A total of 11 pauses occurred. A ll pauses occurred during nighttime hours No symptoms were reported
== END 2024-12-07 09:15 | disposition home or self-care (01) ==
LOC: CARDOPNVT 09:14
PROVIDERS: PCP Nurse Practitioner Family; Visit Provider Internal Medicine Cardiovascular Disease
DX: I47.20 Ventricular tachycardia, unspecified (principal); I48.91 Unspecified atrial fibrillation; I48.92 Unspecified atrial flutter
CPT/HCPCS: 93248

== ENCOUNTER 2024-12-21 09:04 | Outpatient (REF) | payer MEDICARE, SELFPAY ==
--- NOTE | 2024-12-21 08:01 | LIPBX_PTH ---
PATIENT: Chapincito Brown LOC: [facility] U#:[id number] AGE/SX: 79/M ROOM: RE12/21/[address]: Milady Wu : 1945 BED: DIS: 12/21/2024 SPEC #: [id number] RECD: 12/21/24 17:55 STATUS: CELESTINA REJamaal #: [id number] ARA: 12/21/24 08:[address]: Milady Wu DEPT: Surgical Specimen RECD BY: Angela Monroe ENTERED: 12/21/24 17:56 SP TYPE: LIPBX OTHR DR: JOEY Adkins Tissues: 1 - LIP BIOPSY/RESECTION Procedures: GROSS AND MICRO LEVEL 4 Comments: [id number]
== END 2024-12-21 09:05 | disposition home or self-care (01) ==
LOC: LBN 09:04
PROVIDERS: PCP Nurse Practitioner Family; Visit Provider Registered Nurse Maternal Newborn
DX: L56.8 Other specified acute skin changes due to ultraviolet radiation (principal)
CPT/HCPCS: 88305

== ENCOUNTER 2025-01-01 13:23 | Outpatient (REF) | payer MEDICARE, SELFPAY ==
--- NOTE | 2025-01-01 11:50 | LIPBX_PTH ---
PATIENT: Chapincito Brown LOC: [facility] U#:[id number] AGE/SX: 79/M ROOM: RE01/01/[address]: Milady Wu : 1945 BED: DIS: 01/01/2025 SPEC #: [id number] RECD: 01/01/25 17:07 STATUS: CELESTINA BULL #: [id number] ARA: 01/01/25 11:[address]: Milady Wu DEPT: Surgical Specimen RECD BY: Angela Monroe ENTERED: 01/01/25 17:08 SP TYPE: LIPBX OTHR DR: JOEY Adkins Tissues: 1 - LIP BIOPSY/RESECTION Procedures: GROSS AND MICRO LEVEL 4 Comments: [id number]
== END 2025-01-01 13:24 | disposition home or self-care (01) ==
LOC: LBN 13:23
PROVIDERS: PCP Nurse Practitioner Family; Visit Provider Registered Nurse Maternal Newborn
DX: D72.10 Eosinophilia, unspecified (principal)
CPT/HCPCS: 88305

== ENCOUNTER 2025-02-12 17:21 | Outpatient (REF) | payer MEDICARE, SELFPAY ==
--- NOTE | 2025-02-12 13:00 | LIPBX_PTH ---
PATIENT: Chapincito Brown LOC: N U#:[id number] AGE/SX: 79/M ROOM: RE02/12/[address]: Mak Iglesias MD : 1945 BED: DIS: 02/12/2025 SPEC #: [id number] RECD: 02/12/25 17:29 STATUS: CELESTINA REJamaal #: [id number] ARA: 02/12/25 13:[address]: Mak Iglesias DEPT: Surgical Specimen RECD BY: Angela Monroe ENTERED: 02/12/25 17:29 SP TYPE: LIPBX OTHR DR: JOEY Adkins Tissues: 1 - LIP BIOPSY/RESECTION Procedures: GROSS AND MICRO LEVEL 4 Comments: [id number]
== END 2025-02-12 17:22 | disposition home or self-care (01) ==
LOC: LBN 17:21
PROVIDERS: PCP Nurse Practitioner Family; Visit Provider Otolaryngology
DX: C44.329 Squamous cell carcinoma of skin of other parts of face (principal); K13.0 Diseases of lips
CPT/HCPCS: 88305

== ENCOUNTER → 2025-02-21 00:13 | Outpatient (CLI) | payer MEDICARE, SELFPAY ==
[2025-02-21] MEDS: Omnipaque 350 MG/ML 100 ML BTL IJ (09:20)
[2025-02-21] MEDS: Normal Saline Flush 10 ML SYR IVP (09:20)
[2025-02-21] MEDS: Normal Saline - Diluent 50 ML VIAL IJ (09:20)
--- NOTE | 2025-02-21 09:44 | DI.CT_ITS ---
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 TECHNIQUE: Imaging Protocol: Axial computed tomography images with coronal and sagittal reformatted images were created and reviewed. CONTRAST MATERIAL: Intravenous: Omnipaque 350 Contrast volume:100mL COMPARISON: No exams were available for comparison FINDINGS: Visualized intracranial structures: Within normal limits. Orbits and orbital soft tissues: Within normal limits. Visualized paranasal sinuses: There is mucosal thickening in the visualized paranasal sinuses bilaterally with sparing of the frontal sinuses and left sphenoid sinus. The mastoid air cells are clear. Pharynx: Within normal limits. Larynx: Within normal limits. Retropharyngeal space: Within normal limits. Parotids/submandibular: Within normal limits. Thyroid gland: Within normal limits. Lymphadenopathy: There is a single lymph node in the left supraclavicular region measuring 9 mm in short axis (series 3, image 72). Trachea: Within normal limits. Lung apices: Within normal limits. Bones: Within normal limits for the patient's age. There is disc fusion at C4-5 and C5-C6. Carotids/Jugular: Atherosclerotic calcification is present. Soft tissues: There is a nodular soft tissue mass at the right aspect of the lower lip measuring 1.5 x 0.9 cm. 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 (Series 7, image 25 and series 3, image 41). IMPRESSION: 1. 1.5 x 0.9 cm nodular mass at the right aspect of the lower lip. 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 2. Single lymph node in the left supraclavicular region measuring 9 mm in short axis. 3. Chronic sinusitis. RADIATION DOSE DELIVERED: 412.74mGy.cm Total DLP 412.74mGy.cm Total DLP DATA REPOSITORY: All CT scans at this facility are submitted to the National Radiology Data Registry (NRDR) Dose Index Registry (DIR) with the [employer] (ACR). RADIATION OPTIMIZATION: All CT scans at this facility use at least one of these dose optimization techniques: automated exposure control; mA and/or kV adjustment per patient size (includes targeted exams where dose is matched to clinical indication); or iterative reconstruction.
== END ==
LOC: DI 00:13
PROVIDERS: PCP Nurse Practitioner Family; Visit Provider Otolaryngology
DX: C00.1 Malignant neoplasm of external lower lip (principal)
CPT/HCPCS: 70491; 82565; J3490